=== PATIENT | female | born 1995 | race Caucasian/White ===

== ENCOUNTER 2020-05-01 17:47 | Emergency (ER) | payer MEDICAID, SELFPAY ==
[2020-05-01 18:28] VITALS: BP 125/76; PULSE 84; RESP 18; TEMP 37.9; O2SAT 100; BMI 25.7
[2020-05-01] MEDS: Acetaminophen 325 MG TABLET 650 MG PO (18:34)
[2020-05-01 19:01] LABS: Appearance Urine CLOUDY; Color Urine YELLOW; Glucose Urine UA NEG (NEG); Leukocyte Esterase Urine NEG (NEG); Nitrite Urine NEG (NEG); PH 7.5 (5.0-8.0); Specific Gravity - Urine 1.015 (1.005-1.025); Urine Blood NEG (NEG); Urine Ketones NEG (NEG); Urine Protein NEG (NEG-TRACE)
[2020-05-01 20:04] LABS: MANUAL DIFF FLAG NO
[2020-05-01 20:06] LABS: Basophils Absolute Auto 0.1 X10*3/uL (0.0-0.2); Basophils Percent Auto 0.5 % (0-2); Eosinophils Absolute Auto 0.1 X10*3/uL (0.0-0.4); Hematocrit 34.8 % (37-47); Hemoglobin 11.2 g/dl (12.0-16.0); Imm Gran Abs Auto 0.04 X10*3/uL (0.00-0.03); Imm Gran Pct Auto 0.4 % (0.0-0.4); Lymphocytes Absolute Auto 2.6 X10*3/uL (1.2-4.9); Lymphocytes Percent Auto 25.7 % (20-40); Mean Corpuscular HGB Conc 32.2 g/dl (31.0-35.0); Mean Corpuscular Hemoglobin 27.7 pg (27.0-33.0); Mean Corpuscular Volume 85.9 fL (80-98); Mean Platelet Volume 11.2 fL (9.4-12.3); Monocytes Absolute Auto 0.9 X10*3/uL (0.1-1.2); Monocytes Percent Auto 8.7 % (2-11); Neutrophils Absolute Auto 6.4 X10*3/uL (2.0-8.3); Neutrophils Percent Auto 63.7 % (45-73); Platelet Count 289 X10*3/uL (160-400); Red Blood Count 4.05 X10*6/uL (4.20-5.50); Red Cell Distribution Width 15.6 % (11.0-16.0)
[2020-05-01 20:28] LABS: Alanine Aminotransferase 17 U/L (0-31); Albumin Level 4.3 g/dL (3.5-5.0); Alkaline Phosphatase 66 U/L (39-117); Anion Gap 12 (12-20); Aspartate Amino Transferase 16 U/L (5-31); Bilirubin Total 0.4 mg/dL (0.0-1.0); Blood Urea Nitrogen 13 mg/dL (9-16); Carbon Dioxide 23 mmol/L (22-29); Chloride 107 mmol/L (96-108); Creatinine Clr Calc Pharmacy 103.1; Estimated Glomerular Filt Rate > 60; Glucose Random 102 mg/dL (60-115); Sodium 138 mmol/L (135-145); Total Protein 7.4 g/dL (6.5-8.0)
--- NOTE | 2020-05-01 21:38 | ED.ABDPAIN ---
HPI - Abdominal Pain General Chief Complaint: Abdominal Pain Stated Complaint: ABD PAIN Time Seen by Provider: 05/01/20 21:38 Source: patient Mode of arrival: ambulatory Limitations: no limitations History of Present Illness HPI narrative: 24-year-old female presents with left lower quadrant pain and states to have had a positive test. She reports that she is here to see if she is indeed , would like a repeat test. The left lower quadrant pain is a cramping pain, intermittent, and is not associated with fevers or chills. She does not describe any vaginal bleeding, chest pain or pressure, palpitations, shortness breath, abdominal distention, dysuria, hematuria, or edema. MD elicited complaint: abdominal pain Pertinent past history: none Onset (ago): day(s) Pain Consistency: intermittent Location: LLQ Severity: moderate Pain scale (0-10): 7 Quality: cramping Radiation: none Migration to: no migration Exacerbating factors: movement Relieving factors: nothing Associated symptoms: denies other symptoms Related Data Date of Last Menstrual Period: 04/12/20 Allergies Allergy/AdvReac Type Severity Reaction Status Date / Time No Known Allergies Allergy Verified 05/01/20 18:28 [No Known Allergies*] Review of Systems Review of Systems Constitutional: No Weight loss, No Fever, No Chills, No Night Sweats, No Fatigue, No Malaise ENT/Mouth: No Hearing loss, No Ear Pain, No Nasal Congestion, No Sinus Pain, No Hoarseness, No sore throat, No Rhinorrhea, No Swallowing Difficulty Eyes: No Eye Pain, No Swelling, No Redness, No Foreign Body, No Discharge, No Vision Changes Cardiovascular: No Chest Pain, No SOB, No Dyspnea on Exertion, No Orthopnea, No Edema, No Palpitations Respiratory: No Cough, No Sputum, No Wheezing, No Smoke Exposure, No Dyspnea Gastrointestinal: positive abdominal Pain, No nausea, no vomiting, no diarrhea, No Hematochezia, No Melena Genitourinary: no irregular bleeding, No Dysuria, No Urinary Frequency, No Hematuria, No Urinary Incontinence, No Urgency, No Flank Pain, No Urinary Flow Changes, No Hesitancy Musculoskeletal: No joint pain, No Myalgias, No Joint Swelling Skin: No Skin Lesions, No rash Neuro: No Weakness, No Numbness, No Paresthesias, No Loss of Consciousness, No Dizziness, No Headache Psych: No Anxiety/Panic, No Depression, No SI/HI/AH/VH, No Social Issues, Heme/Lymph: No Bruising, No Bleeding,No Lymphadenopathy Endocrine: No Polyuria, No Polydipsia, No Temperature Intolerance Physical Exam Vital Signs: Vital Signs: Vital Signs Temp Pulse Resp BP Pulse Ox 05/01/20 21:46 98.9 F 73 18 114/72 99 05/01/20 18:28 100.2 F 84 18 125/76 100 Body Mass Index 25.7 Appearance: Alert. Oriented X3. No acute distress. Eyes: Pupils equal, round and reactive to light. ENT: Pharynx normal. Neck: Normal inspection. Neck supple. CVS: Normal heart rate and rhythm. Pulses normal. Respiratory: No respiratory distress. Breath sounds normal. Abdomen: Soft and tender to palpation to the left lower quadrant. Skin: Skin warm and dry. Normal skin color. Normal skin turgor. Extremities: No lower extremity edema. Neuro: No motor deficit. No sensory deficit. Course Course Course Narrative: discussion with patient regarding plan of care, she states that she would like a repeat test. Lab values are within normal limits with the exception of some mild anemia H&H is 11.2/34.8. Abdomen is mildly tender to left lower quadrant, negative obturator, psoas, Navarrete's and McBurney's. Urinalysis is negative. Urine test is negative. Patient is dissatisfied with plan of care, she would like further testing to investigate why she has abdominal pain, detailed description regarding radiation exposure with CT scan, she would like to continue with CT scan To rule out acute abdomen. Patient left prior to CT scan results. Please refer to nursing notes for full details. MDM - Abdominal Pain Medical Records Attestation: I reviewed the patient's medical records. Lab Data Attestation: I reviewed the patient's lab results. Result diagrams: 05/01/20 20:00 05/01/20 19:59 Labs: Lab Results 05/01/20 05/01/20 05/01/20 Range/Units 18:49 19:59 19:59 WBC (4.8-10.8) X10*3/uL RBC (4.20-5.50) X10*6/uL Hgb (12.0-16.0) g/dl Hct (37-47) % MCV (80-98) fL MCH (27.0-33.0) pg MCHC (31.0-35.0) g/dl RDW (11.0-16.0) % Plt Count (160-400) X10*3/uL MPV (9.4-12.3) fL Immature Gran % (Auto) (0.0-0.4) % Neut % (Auto) (45-73) % Lymph % (Auto) (20-40) % [place] % (Auto) (2-11) % Eos % (Auto) (0-4) % Baso % (Auto) (0-2) % Lymph # (Auto) (1.2-4.9) X10*3/uL [place] # (Auto) (0.1-1.2) X10*3/uL Eos # (Auto) (0.0-0.4) X10*3/uL Baso # (Auto) (0.0-0.2) X10*3/uL Abs Immat Gran (auto) (0.00-0.03) X10*3/uL Absolute Neuts (auto) (2.0-8.3) X10*3/uL Absolute Nucleated RBC (0.0-0.012) X10*3/uL Nucleated RBC % (auto) (0.0-0.2) /100WBC Hold Blue Top SEE NOTE Sodium 138 (135-145) mmol/L Potassium 4.0 (3.3-5.1) mmol/l Chloride 107 (96-108) mmol/L Carbon Dioxide 23 (22-29) mmol/L Anion Gap 12 (12-20) BUN 13 (9-16) mg/dL Creatinine 0.78 (0.5-1.4) mg/dL Estim Creat Clear Calc 103.1 Estimated GFR > 60 Random Glucose 102 (60-115) mg/dL Calcium 9.0 (8.4-10.2) mg/dL Total Bilirubin 0.4 (0.0-1.0) mg/dL AST 16 (5-31) U/L ALT 17 (0-31) U/L Alkaline Phosphatase 66 (39-117) U/L Total Protein 7.4 (6.5-8.0) g/dL Albumin 4.3 (3.5-5.0) g/dL Urine Color YELLOW Urine Appearance CLOUDY Urine pH 7.5 (5.0-8.0) Ur Specific [place] 1.015 (1.005-1.025) Urine Protein NEG (NEG-TRACE) MG/DL Urine Glucose (UA) NEG (NEG) MG/DL Urine Ketones NEG (NEG) MG/DL Urine Blood NEG (NEG) Urine Nitrite NEG (NEG) Ur Leukocyte Esterase NEG (NEG) Urine Test NEGATIVE (NEGATIVE) 05/01/20 Range/Units 20:00 WBC 10.0 (4.8-10.8) X10*3/uL RBC 4.05 L (4.20-5.50) X10*6/uL Hgb 11.2 L (12.0-16.0) g/dl Hct 34.8 L (37-47) % MCV 85.9 (80-98) fL MCH 27.7 (27.0-33.0) pg MCHC 32.2 (31.0-35.0) g/dl RDW 15.6 (11.0-16.0) % Plt Count 289 (160-400) X10*3/uL MPV 11.2 (9.4-12.3) fL Immature Gran % (Auto) 0.4 (0.0-0.4) % Neut % (Auto) 63.7 (45-73) % Lymph % (Auto) 25.7 (20-40) % [place] % (Auto) 8.7 (2-11) % Eos % (Auto) 1.0 (0-4) % Baso % (Auto) 0.5 (0-2) % Lymph # (Auto) 2.6 (1.2-4.9) X10*3/uL [place] # (Auto) 0.9 (0.1-1.2) X10*3/uL Eos # (Auto) 0.1 (0.0-0.4) X10*3/uL Baso # (Auto) 0.1 (0.0-0.2) X10*3/uL Abs Immat Gran (auto) 0.04 H (0.00-0.03) X10*3/uL Absolute Neuts (auto) 6.4 (2.0-8.3) X10*3/uL Absolute Nucleated RBC 0.000 (0.0-0.012) X10*3/uL Nucleated RBC % (auto) 0.0 (0.0-0.2) /100WBC Hold Blue Top Sodium (135-145) mmol/L Potassium (3.3-5.1) mmol/l Chloride (96-108) mmol/L Carbon Dioxide (22-29) mmol/L Anion Gap (12-20) BUN (9-16) mg/dL Creatinine (0.5-1.4) mg/dL Estim Creat Clear Calc Estimated GFR Random Glucose (60-115) mg/dL Calcium (8.4-10.2) mg/dL Total Bilirubin (0.0-1.0) mg/dL AST (5-31) U/L ALT (0-31) U/L Alkaline Phosphatase (39-117) U/L Total Protein (6.5-8.0) g/dL Albumin (3.5-5.0) g/dL Urine Color Urine Appearance Urine pH (5.0-8.0) Ur Specific [place] (1.005-1.025) Urine Protein (NEG-TRACE) MG/DL Urine Glucose (UA) (NEG) MG/DL Urine Ketones (NEG) MG/DL Urine Blood (NEG) Urine Nitrite (NEG) Ur Leukocyte Esterase (NEG) Urine Test (NEGATIVE) Imaging Data CT scan - pelvis: Radiologist's impression: FINDINGS: LUNG BASES: The visualized lung bases are unremarkable. LIVER, GALLBLADDER, AND BILIARY TREE: The liver is normal in size, shape, and attenuation. No focal hepatic lesion or biliary ductal dilatation is present. The gallbladder is unremarkable with no evidence of radiopaque gallstones, gallbladder wall thickening, or obvious pericholecystic inflammatory changes. PANCREAS: Unremarkable. SPLEEN: A single splenic calcified granuloma is present. A tiny splenule is noted. The spleen is otherwise normal. ADRENAL GLANDS: Unremarkable. KIDNEYS AND URETERS: The kidneys are normal in size, shape, and attenuation. No hydronephrosis, hydroureter, or calculi seen. No perinephric stranding. BLADDER: Unremarkable. GASTROINTESTINAL TRACT: The small and large bowel are unremarkable. The appendix is unremarkable. ABDOMINAL WALL: No significant hernia is appreciated. LYMPH NODES: No retroperitoneal lymphadenopathy. Small bilateral inguinal nodes are present. VASCULAR: Both ovarian veins are dilated with the left measuring 1 cm and the right measuring 1.3 cm. I suspect, given their size, that these reflux. There are pelvic varices present but not well demonstrated because of lack of IV contrast. PELVIC VISCERA: An anteverted uterus is present. An abnormal adnexal mass is not seen. It is present in the cul-de-sac. OSSEOUS STRUCTURES: Unremarkable. IMPRESSION: 1. The only abnormality seen is bilaterally dilated ovarian veins which I suspect reflux. There are most likely pelvic varices. This can be a cause of chronic pelvic pain especially if exacerbated by the upright position and relieved with the supine position. If the patient has these symptoms, consultation with an interventional radiologist is recommended as this condition can easily be treated with outpatient embolization. 2. Incidental note made of a small amount of free pelvic fluid, a single calcified splenic granuloma and minimally prominent inguinal lymph nodes. Discharge Plan Discharge Clinical Impression: Abdominal pain Patient Disposition: Elopement Instructions: Abdominal Pain (ED) Additional Instructions: you were evaluated for suspected and abdominal pain. Your test is negative. please follow-up with your primary care physician for further workup. Thank you for choosing this emergency department for evaluation. Please follow-up with primary care physician as needed. Return to the emergency department for any new, concerning, or worsening symptoms. Interventions: ED Discharge Assessment Last Done: 05/01/20 22:19 Discharge Date/Time: 05/01/20 23:17 [facility] Past Medical History Medical History Anemia Tachycardia Date of Last Menstrual Period: 04/12/20 Social History Social History Alcohol intake: never Smoking Status: Never smoker Use of substances other than those prescribed or required for medical reasons: No Advance Directives: No Advance Directives Information Provided: Yes
[2020-05-01 21:46] VITALS: BP 114/72; PULSE 73; RESP 18; TEMP 37.2; O2SAT 99
[2020-05-01 21:51] LABS: UPreg QC Valid YES; Urine Pregnancy NEGATIVE (NEGATIVE)
--- NOTE | 2020-05-01 22:10 | PC.NURSE ---
patient is a&ox3, labs were drawn in wr, with urine, patients urine came back negative for - provider notified patient, patient will be discharged.
--- NOTE | 2020-05-01 22:23 | PC.NURSE ---
patient is refusing discharge at this time, pt states that provider didnt address her abd pain despite the patient telling the provider she had come in to confirm her and had been satisfied. provider was notified and additional testing will be performed.
--- NOTE | 2020-05-01 22:25 | CT_ITS ---
EXAMINATION: CT ABDOMEN AND PELVIS WITHOUT CONTRAST CLINICAL INFORMATION: Abdominal pain. COMPARISON: None TECHNIQUE: Multidetector volumetric imaging was performed from the superior aspect of the liver through the pubic symphysis. Sagittal and coronal reformatted images were obtained on the technologist's workstation. This CT examination was performed using dose optimization techniques as appropriate, variously including the following: *Automated exposure control. *Adjustment of mA and/or kV according to patient size (this includes techniques or standardized protocols for targeted exams where dose is matched to indication/reason for exam; i.e. extremities or head). *Use of iterative reconstruction technique. DLP: 422 mGy-cm FINDINGS: LUNG BASES: The visualized lung bases are unremarkable. LIVER, GALLBLADDER, AND BILIARY TREE: The liver is normal in size, shape, and attenuation. No focal hepatic lesion or biliary ductal dilatation is present. The gallbladder is unremarkable with no evidence of radiopaque gallstones, gallbladder wall thickening, or obvious pericholecystic inflammatory changes. PANCREAS: Unremarkable. SPLEEN: A single splenic calcified granuloma is present. A tiny splenule is noted. The spleen is otherwise normal. ADRENAL GLANDS: Unremarkable. KIDNEYS AND URETERS: The kidneys are normal in size, shape, and attenuation. No hydronephrosis, hydroureter, or calculi seen. No perinephric stranding. BLADDER: Unremarkable. GASTROINTESTINAL TRACT: The small and large bowel are unremarkable. The appendix is unremarkable. ABDOMINAL WALL: No significant hernia is appreciated. LYMPH NODES: No retroperitoneal lymphadenopathy. Small bilateral inguinal nodes are present. VASCULAR: Both ovarian veins are dilated with the left measuring 1 cm and the right measuring 1.3 cm. I suspect, given their size, that these reflux. There are pelvic varices present but not well demonstrated because of lack of IV contrast. PELVIC VISCERA: An anteverted uterus is present. An abnormal adnexal mass is not seen. It is present in the cul-de-sac. OSSEOUS STRUCTURES: Unremarkable. IMPRESSION: 1. The only abnormality seen is bilaterally dilated ovarian veins which I suspect reflux. There are most likely pelvic varices. This can be a cause of chronic pelvic pain especially if exacerbated by the upright position and relieved with the supine position. If the patient has these symptoms, consultation with an interventional radiologist is recommended as this condition can easily be treated with outpatient embolization. 2. Incidental note made of a small amount of free pelvic fluid, a single calcified splenic granuloma and minimally prominent inguinal lymph nodes.
--- NOTE | 2020-05-01 22:30 | PC.NURSE ---
PT CURRENTLY IN CT SCAN, UNABLE TO GIVE MEDICATION AT THIS TIME
--- NOTE | 2020-05-01 23:06 | PC.NURSE ---
PATIENT COMING OUT OF HER ROOM, STATING TO STAFF MEMBERS AT THE DESK. THIS IS TAKING TO LONG AND I AM NOT WAITING ANY LONGER . PATIENT QUITE RUDE TO STAFF. PATIENT ENCOURAGED TO STAY FOR RESULTS FOR CT SCAN BECAUSE SHE WAS CONCERNED ABOUT HER ABD PAIN. PATIENT REFUSING AND LEAVING FROM EMERGENCY DEPARTMENT. PROVIDER AND PRIMARY NURSE MADE AWARE. NO DISTRESS OR FACIAL GRIMACE NOTED WHILE PATIENT WAS STEADILY AMBULATING THE HALLWAYS.
== END 2020-05-01 23:17 | disposition left against medical advice (07) ==
PROVIDERS: Nurse Practitioner Family; Emergency Provider Emergency Medicine; PCP Family Medicine
DX: R10.32 Left lower quadrant pain (principal)
CPT/HCPCS: 36415; 74176; 80053; 81003; 81025; 85025; 99284

== ENCOUNTER 2020-05-18 11:52 | Emergency (ER) | payer MEDICAID, SELFPAY ==
[2020-05-18 12:26] VITALS: PULSE 85; RESP 16; TEMP 36.9; O2SAT 100; BMI 24.7
--- NOTE | 2020-05-18 12:31 | ED.GENADULT ---
HPI - General Adult General Chief complaint: Nausea/Vomiting/Diarrhea Stated complaint: Vomiting, Rapid Heart Beat Time Seen by Provider: 05/18/20 12:21 Source: patient Mode of arrival: ambulatory Limitations: no limitations History of Present Illness HPI narrative: patient comes to the emergency room complaining of vomiting for 2-3 days. Patient states she got something [id number] that helped initially for the 1st day but the last 2 days she has been vomiting. Patient denies abdominal pain, no diarrhea, no fever. Of note, patient was seen here on 05/01/2020 for left lower quadrant pain, a CT scan did not show any acute pathology, patient left that the day before the CT scan results were available because she had to go home and take care of her Child. Patient states that our test here was negative, Than in [facility] she had a test which was positive. MD complaint: vomiting Related Data Previous Rx's Medication Instructions Recorded prochlorperazine maleate 5 mg PO BID PRN #10 tab 05/18/20 [Compazine] Allergies Allergy/AdvReac Type Severity Reaction Status Date / Time No Known Allergies Allergy Verified 05/01/20 18:28 [No Known Allergies*] Review of Systems Review of Systems: Constitutional : No Weight loss, No Fever, No Chills, No Night Sweats, No Fatigue, No Malaise ENT/Mouth : No Hearing loss, No Ear Pain, No Nasal Congestion, No Sinus Pain, No Hoarseness, No sore throat, No Rhinorrhea, No Swallowing Difficulty Eyes: No Eye Pain, No Swelling, No Redness, No Foreign Body, No Discharge, No Vision Changes Cardiovascular : No Chest Pain, No SOB, No Dyspnea on Exertion, No Orthopnea, No Edema, No Palpitations Respiratory : No Cough, No Sputum, No Wheezing, No Smoke Exposure, No Dyspnea Gastrointestinal : Patient complaining of nausea and vomiting, No Diarrhea, No Constipation, No abdominal Pain, No Hematochezia, No Melena Genitourinary : no irregular bleeding, No Dysuria, No Urinary Frequency, No Hematuria, No Urinary Incontinence, No Urgency, No Flank Pain, No Urinary Flow Changes, No Hesitancy Musculoskeletal : No joint pain, No Myalgias, No Joint Swelling Skin : No Skin Lesions, No rash Neuro : No Weakness, No Numbness, No Paresthesias, No Loss of Consciousness, No Dizziness, No Headache Psych : No Anxiety/Panic, No Depression, No SI/HI/AH/VH, No Social Issues, Heme/Lymph: No Bruising, No Bleeding,No Lymphadenopathy Endocrine : No Polyuria, No Polydipsia, No Temperature Intolerance Yes all other systems are reviewed and are negative FORMERLY [facility], [facility] Past Medical History Medical History Anemia Tachycardia Social History Social History Alcohol intake: never Smoking Status: Never smoker Smoked in Last 30 Days: No Use of substances other than those prescribed or required for medical reasons: No Advance Directives: No Advance Directives Information Provided: No Physical Exam Vital Signs: Vital Signs: Vital Signs Temp Pulse Resp Pulse Ox 05/18/20 12:26 98.5 F 85 16 100 Body Mass Index 24.7 Appearance: Alert. Oriented X3. No acute distress. Eyes: Pupils equal, round and reactive to light. ENT: Pharynx normal. Neck: Normal inspection. Neck supple. No lymph nodes noted. No crepitus CVS: Normal heart rate and rhythm. Pulses normal. Normal S1 and S2 Respiratory: No respiratory distress. Breath sounds normal. No Wheezing. No rales Abdomen: Soft and nontender. No rigidity. No distention. good BS x4 Skin: Skin warm and dry. Normal skin color. Normal skin turgor. Extremities: No lower extremity edema. No lower extremity edema. No Lacerations. No Rash Neuro: Oriented X 3. No motor deficit. No sensory deficit. Moving all extermities. No slurred speech. Course Course Course Narrative: I discussed the labs with the patient, her hCG is positive, echo well into approximately 5-6 weeks of gestational age. A bedside ultrasound showed an intrauterine urine , heart rate present. Patient follow-up with OBGYN I discussed with the patient signs and symptoms of miscarriage and ectopic , And when to return to the emergency room. Medical Decision Making Lab Data Result diagrams: 05/18/20 12:39 05/18/20 12:39 Labs: Lab Results 05/18/20 05/18/20 05/18/20 Range/Units 12:39 12:39 12:39 WBC 11.7 H (4.8-10.8) X10*3/uL RBC 4.08 L (4.20-5.50) X10*6/uL Hgb 11.0 L (12.0-16.0) g/dl Hct 34.5 L (37-47) % MCV 84.6 (80-98) fL MCH 27.0 (27.0-33.0) pg MCHC 31.9 (31.0-35.0) g/dl RDW 15.3 (11.0-16.0) % Plt Count 271 (160-400) X10*3/uL MPV 10.8 (9.4-12.3) fL Immature Gran % (Auto) 0.5 H (0.0-0.4) % Neut % (Auto) 78.1 H (45-73) % Lymph % (Auto) 14.0 L (20-40) % [place] % (Auto) 6.8 (2-11) % Eos % (Auto) 0.3 (0-4) % Baso % (Auto) 0.3 (0-2) % Lymph # (Auto) 1.6 (1.2-4.9) X10*3/uL [place] # (Auto) 0.8 (0.1-1.2) X10*3/uL Eos # (Auto) 0.0 (0.0-0.4) X10*3/uL Baso # (Auto) 0.0 (0.0-0.2) X10*3/uL Abs Immat Gran (auto) 0.06 H (0.00-0.03) X10*3/uL Absolute Neuts (auto) 9.1 H (2.0-8.3) X10*3/uL Absolute Nucleated RBC 0.000 (0.0-0.012) X10*3/uL Nucleated RBC % (auto) 0.0 (0.0-0.2) /100WBC Sodium 136 (135-145) mmol/L Potassium 3.7 (3.3-5.1) mmol/l Chloride 105 (96-108) mmol/L Carbon Dioxide 21 L (22-29) mmol/L Anion Gap 14 (12-20) BUN 10 (9-16) mg/dL Creatinine 0.69 (0.5-1.4) mg/dL Estim Creat Clear Calc 114.8 Estimated GFR > 60 Random Glucose 99 (60-115) mg/dL Calcium 8.8 (8.4-10.2) mg/dL Total Bilirubin 0.6 (0.0-1.0) mg/dL Direct Bilirubin < 0.2 (0.0-0.5) mg/dL AST 21 (5-31) U/L ALT 15 (0-31) U/L Alkaline Phosphatase 58 (39-117) U/L Total Protein 7.3 (6.5-8.0) g/dL Albumin 4.3 (3.5-5.0) g/dL Lipase 20 (8-78) U/L Beta HCG, Quant 97113 mIU/mL ECG Data Attestation: I personally reviewed and interpreted this ECG as follows: ( sinus tachycardia, heart rate 103, no ST segment elevations or depressions, no T-wave inversions.) Discharge Plan Discharge Clinical Impression: Vomiting Qualifiers: Vomiting type: unspecified Vomiting Intractability: unspecified Nausea presence: unspecified Qualified Code(s): R11.10 - Vomiting, unspecified Qualifiers: Weeks of gestation: less than 8 weeks Qualified Code(s): Z3A.01 - Less than 8 weeks gestation of Patient Disposition: Home, Self-Care Instructions: First Trimester (ED) Additional Instructions: please call OBGYN to schedule an appointment if you have any significant abdominal pain, vaginal bleeding, please return to the emergency room. Please follow-up with your primary care physician tomorrow. If you have any worsening or new symptoms, please return to the emergency room or call 911 Prescriptions: New prochlorperazine maleate [Compazine] 5 mg tablet 5 mg PO BID PRN (Reason: nausea and vomiting) Qty: 10 RF: 0
[2020-05-18 12:34] VITALS: PULSE 94
[2020-05-18] MEDS: 0.9 % Sodium Chloride 1,000 ML 999 ML IVCONT (12:45)
[2020-05-18] MEDS: ondansetron HCL 4 MG/2 ML VIAL IVPUSH (12:45)
[2020-05-18 12:50] LABS: MANUAL DIFF FLAG NO
[2020-05-18 12:55] LABS: Basophils Percent Auto 0.3 % (0-2); Eosinophils Percent Auto 0.3 % (0-4); Hematocrit 34.5 % (37-47); Imm Gran Abs Auto 0.06 X10*3/uL (0.00-0.03); Imm Gran Pct Auto 0.5 % (0.0-0.4); Lymphocytes Absolute Auto 1.6 X10*3/uL (1.2-4.9); Mean Corpuscular HGB Conc 31.9 g/dl (31.0-35.0); Mean Corpuscular Volume 84.6 fL (80-98); Mean Platelet Volume 10.8 fL (9.4-12.3); Monocytes Absolute Auto 0.8 X10*3/uL (0.1-1.2); Monocytes Percent Auto 6.8 % (2-11); Neutrophils Absolute Auto 9.1 X10*3/uL (2.0-8.3); Neutrophils Percent Auto 78.1 % (45-73); Platelet Count 271 X10*3/uL (160-400); Red Blood Count 4.08 X10*6/uL (4.20-5.50); Red Cell Distribution Width 15.3 % (11.0-16.0); White Blood Count 11.7 X10*3/uL (4.8-10.8)
[2020-05-18 13:20] LABS: Alanine Aminotransferase 15 U/L (0-31); Albumin Level 4.3 g/dL (3.5-5.0); Alkaline Phosphatase 58 U/L (39-117); Anion Gap 14 (12-20); Aspartate Amino Transferase 21 U/L (5-31); Bilirubin Direct < 0.2 mg/dL (0.0-0.5); Bilirubin Total 0.6 mg/dL (0.0-1.0); Blood Urea Nitrogen 10 mg/dL (9-16); Calcium 8.8 mg/dL (8.4-10.2); Carbon Dioxide 21 mmol/L (22-29); Chloride 105 mmol/L (96-108); Creatinine Clr Calc Pharmacy 114.8; Estimated Glomerular Filt Rate > 60; Glucose Random 99 mg/dL (60-115); Lipase 20 U/L (8-78); Potassium 3.7 mmol/l (3.3-5.1); Sodium 136 mmol/L (135-145); Total Protein 7.3 g/dL (6.5-8.0)
[2020-05-18 13:48] LABS: HCG Quantitative 24103 mIU/mL
--- NOTE | 2020-05-18 13:56 | PC.NURSE ---
pt reports improvement in nausea since medicated. no vomiting since coming to ED.
--- NOTE | 2020-05-19 | ECG_ITS ---
Test Reason : TACHYCARDIA/VOMITING Blood Pressure : / mmHG Vent. Rate : 103 BPM Atrial Rate : 103 BPM P-R Int : 120 ms QRS Dur : 070 ms QT Int : 334 ms P-R-T Axes : 058 069 036 degrees QTc Int : 437 ms Sinus tachycardia Nonspecific T wave abnormality Abnormal ECG When compared with ECG of 01-SEP-2016 12:11, No significant change was found Referred By: Matilda Hurley Electronically Signed By:ECTOR MCNEIL MD
== END 2020-05-18 15:55 | disposition home or self-care (01) ==
PROVIDERS: Emergency Provider Emergency Medicine; PCP Family Medicine
DX: O21.0 Mild hyperemesis gravidarum (principal); Z3A.08 8 weeks gestation of pregnancy
CPT/HCPCS: 36415; 80048; 80076; 83690; 84702; 85025; 93005; 96361; 96374; 99284; J2405

== ENCOUNTER 2020-05-24 13:18 | Emergency (ER) | payer MEDICAID, SELFPAY ==
[2020-05-24 13:21] VITALS: BP 119/73; PULSE 83; RESP 16; TEMP 36.4; O2SAT 98; BMI 25.7
--- NOTE | 2020-05-24 15:49 | ED_ITS ---
HPI - Nausea/Vomiting/Diarrhea General Chief complaint: Nausea/Vomiting/Diarrhea Stated complaint: VOMITING BLOOD Time Seen by Provider: 05/24/20 15:42 Source: patient Mode of arrival: ambulatory Limitations: no limitations History of Present Illness HPI Narrative: 24-year-old female here with generalized abdominal pain and vomiting for the last few days. No diarrhea. She tells me she is currently . She has not had a formal ultrasound. She thinks she is about 7 weeks. She is a . She was seen here on 05/18 for similar symptoms. [place] [address]. she received IV fluids and antiemetic and was discharged home with Compazine. Per provider note a bedside US which conf irmed intrauterine . The patient tells me she has tried this several times but continues to have nausea and vomiting. No lower abdominal cramping. No vaginal bleeding. No vaginal discharge. MD elicited complaint: nausea, vomiting and abdominal pain Onset (ago): day(s) Description of vomiting: food contents Associated nausea: Yes Associated abdominal pain: Yes Location of pain: diffuse Pain consistency: constant Severity: mild Exacerbating factors: none Relieving factors: none Associated symptoms: denies other symptoms Related Data Previous Rx's Medication Instructions Recorded prochlorperazine maleate 5 mg PO BID PRN #10 tab 05/18/20 [Compazine] promethazine 12.[address] TID PRN #8 ea 05/24/20 pyridoxine (vitamin B6) 25 mg PO TID PRN #10 tab 05/24/20 Allergies Allergy/AdvReac Type Severity Reaction Status Date / Time No Known Allergies Allergy Verified 05/01/20 18:28 [No Known Allergies*] Review of Systems Review of Systems: Yes all other systems are reviewed and are negative Constitutional: Constitutional: Reports no additional constitutional complaints, Denies body ache(s), Denies chills, Denies fever(s), Denies hea dache(s) and Denies weakness Eyes: Eyes: Reports no additional eye complaints and Denies change in vision ENT: Reports system reviewed and no additional complaints, except as documented, Denies dizziness, Denies headache(s), Denies nasal congestion, Denies nasal discharge and Denies neck pain Cardiovascular: Cardiovascular: Reports no additional cardiovascular complaints, Denies chest pain, Denies leg edema and Denies dyspnea Respiratory: Respiratory: Reports no additional respiratory complaints, Denies cough and Denies dyspnea Gastrointestinal: Gastrointestinal: Reports abdominal pain, Denies diarrhea, Reports nausea and Reports vomiting Genitourinary: Genitourinary: Reports no additional female genitourinary complaints, Denies urinary incontinence, Denies urinary hesitancy, Denies urinary urgency and Denies vaginal discharge Comments: no vaginal bleeding Musculoskeletal: Musculoskeletal: Reports no additional musculoskeletal complaints, Denies back pain, Denies arthralgias, Denies joint swelling, Denies neck pain, Denies numbness and Denies tingling Integumentary/Breasts: Skin/Breast: Reports system reviewed and no additional complaints, except as docu and Denies rash Neurologic: Reports system reviewed and no additional complaints, except as documented, Denies Abnormal speech present, Denies dizziness, Denies headache(s), Denies numbness, Denies tingling and Denies weakness PMFSH Past Medical History Attestation statement: The following information was validated with the patient. Source: obtained from family and nursing notes reviewed Medical History Anemia Tachycardia Social History Social History Alcohol intake: unknown Smoking Status: Never smoker Smoked in Last 30 Days: No Use of substances other than those prescribed or required for medical reasons: No Advance Directives: No Advance Directives Information Provided: No Physical Exam Vital Signs: Vital Signs: Vital Signs Temp Pulse Resp BP Pulse Ox 05/24/20 19:07 72 18 109/64 100 05/24/20 17:46 70 20 109/67 05/24/20 13:21 97.6 F 83 16 119/73 98 Body Mass Index 25.7 Const: General: cooperative, healthy appearing, comfortable and no acute distress Orientation/consciousness: patient oriented x3 Limitations: no limitations HENMT: Head: Yes normal to inspection Ears: hearing grossly normal bilaterally General nose exam: Normal external nose present Face and sinus: Yes normal facial exam Mouth: Normal oral and palatal mucosa present Throat: Yes posterior oropharynx normal Eyes: General: appearance normal, both eyes and all related structures Pupils: Equal, round and reactive pupils present Neck: Neck: Yes normal visual inspection Chest: Chest palpation & inspection: normal inspection of the chest Resp: Effort & Inspection: normal respiratory effort Auscultation: clear to auscultation bilaterally Cardio: Rate: regular rate Rhythm: regular rhythm Peripheral pulses: Peripheral pulses 2+ throughout GI: Other: mild diffuse tenderness. No focal tenderness. Inspection: Yes normal to inspection Palpation (GI): Soft to palpation and nontender Auscultation: normal bowel sounds Back/Spine/Pelvis: Thoracic/Lumbar Spine: thoracic and lumbar spine normal to inspection Skin: General skin exam: no rashes or lesions noted Neuro: General: patient oriented x3, no focal motor deficits and normal sensation to monofilament Cranial nerves: Yes Equal, round and reactive pup ils present Cognition (Neuro): normal cognition Speech: No Abnormal speech present Gait exam (Neuro): Normal gait present Motor exam (neuro): 5/5 motor strength present throughout Extrem: General: Yes normal to inspection Course Course Course Narrative: 24-year-old female currently here with nausea, vomiting and generalized abdominal discomfort the last few days unrelieved with Compazine at home. On arrival the patient has no focal abdominal tenderness. She has some mild diffuse tenderness. Otherwise she appears well with stable vital signs. Will check labs, UA for ketones, beta quant. Will give IV fluids and antiemetic and reassessed 2100- labs unremarkable. UA does show some ketones. Patient received 3 L of normal saline and 1 dose of Phenergan and is tolerating crackers and wil robbi with no episodes of vomiting. Plan for discharge home with follow-up with OB. Reviewed worrisome signs and symptoms and when to return to the emergency department. Comfortable discharge home. MDM - Nausea/Vomiting/Diarrhea Medical Records Attestation: I reviewed the patient's medical records. Lab Data Attestation: I reviewed the patient's lab results. Result diagrams: 05/24/20 15:59 05/24/20 15:59 Labs: Lab Results 05/24/20 05/24/20 05/24/20 Range/Units 15:59 15:59 20:04 WBC 9.4 (4.8-10.8) X10*3/uL RBC 4.25 (4.20-5.50) X10*6/uL Hgb 11.5 L (12.0-16.0) g/dl Hct 35.9 L (37-47) % MCV 84.5 (80-98) fL MCH 27.1 (27.0-33.0) pg MCHC 32.0 (31.0-35.0) g/dl RDW 15.3 (11.0-16.0) % Plt Count 252 (160-400) X10*3/uL MPV 11.3 (9.4-12.3) fL Immature Gran % (Auto) 0.3 (0.0-0.4) % Neut % (Auto) 69.1 (45-73) % Lymph % (Auto) 21.6 (20-40) % [place] % (Auto) 8.3 (2-11) % Eos % (Auto) 0.3 (0-4) % Baso % (Auto) 0.4 (0-2) % Lymph # (Auto) 2.0 (1.2-4.9) X10*3/uL [place] # (Auto) 0.8 (0.1-1.2) X10*3/uL Eos # (Auto) 0.0 (0.0-0.4) X10*3/uL Baso # (Auto) 0.0 (0.0-0.2) X10*3/uL Abs Immat Gran (auto) 0.03 (0.00-0.03) X10*3/uL Absolute Neuts (auto) 6.5 (2.0-8.3) X10*3/uL Absolute Nucleated RBC 0.000 (0.0-0.012) X10*3/uL Nucleated RBC % (auto) 0.0 (0.0-0.2) /100WBC Sodium 134 L (135-145) mmol/L Potassium 3.9 (3.3-5.1) mmol/l Chloride 102 (96-108) mmol/L Carbon Dioxide 24 (22-29) mmol/L Anion Gap 12 (12-20) BUN 8 L (9-16) mg/dL Creatinine 0.67 (0.5-1.4) mg/dL Estim Creat Clear Calc 120.0 Estimated GFR > 60 Random Glucose 66 (60-115) mg/dL Calcium 8.7 (8.4-10.2) mg/dL Magnesium 1.9 (1.6-2.6) mg/dL Total Bilirubin 0.6 (0.0-1.0) mg/dL Direct Bilirubin 0.2 (0.0-0.5) mg/dL AST 15 (5-31) U/L ALT 10 (0-31) U/L Alkaline Phosphatase 57 (39-117) U/L Total Protein 7.3 (6.5-8.0) g/dL Albumin 4.3 (3.5-5.0) g/dL Beta HCG, Quant 83594 mIU/mL Urine Color YELLOW Urine Appearance CLEAR Urine pH 6.0 (5.0-8.0) Ur Specific [place] >= 1.030 H (1.005-1.025) Urine Protein NEG (NEG-TRACE) MG/DL Urine Glucose (UA) NEG (NEG) MG/DL Urine Ketones >=80 (NEG) MG/DL Urine Blood NEG (NEG) Urine Nitrite NEG (NEG) Ur Leukocyte Esterase NEG (NEG) Discharge Plan Discharge Clinical Impression: Hyperemesis gravidarum Patient Disposition: Home, Self-Care Instructions: Hyperemesis Gravidarum (ED) Additional Instructions: Keep crackers by the bedside before getting out of bed in the morning ate several crackers. You need to follow-up with an OB doctor as you are Prescriptions: New promethazine 12.5 mg suppository 12.[address] TID PRN (Reason: nausea and vomiting) Qty: 8 RF: 0 pyridoxine (vitamin B6) 25 mg tablet 25 mg PO TID PRN (Reason: nausea and vomiting) Qty: 10 RF: 0 No Action prochlorperazine maleate [Compazine] 5 mg tablet 5 mg PO BID PRN (Reason: nausea and vomiting) Qty: 10 RF: 0 Referrals: Bhargav Walton MD [Physician] - 2 days Stand Alone Forms: Work/School Release
[2020-05-24] MEDS: 0.9 % Sodium Chloride 1,000 ML 999 ML IV ×3 (16:01→21:52)
[2020-05-24 16:09] LABS: MANUAL DIFF FLAG NO
[2020-05-24 16:10] LABS: Basophils Percent Auto 0.4 % (0-2); Eosinophils Percent Auto 0.3 % (0-4); Hematocrit 35.9 % (37-47); Hemoglobin 11.5 g/dl (12.0-16.0); Imm Gran Abs Auto 0.03 X10*3/uL (0.00-0.03); Imm Gran Pct Auto 0.3 % (0.0-0.4); Lymphocytes Percent Auto 21.6 % (20-40); Mean Corpuscular Hemoglobin 27.1 pg (27.0-33.0); Mean Corpuscular Volume 84.5 fL (80-98); Mean Platelet Volume 11.3 fL (9.4-12.3); Monocytes Absolute Auto 0.8 X10*3/uL (0.1-1.2); Monocytes Percent Auto 8.3 % (2-11); Neutrophils Absolute Auto 6.5 X10*3/uL (2.0-8.3); Neutrophils Percent Auto 69.1 % (45-73); Platelet Count 252 X10*3/uL (160-400); Red Blood Count 4.25 X10*6/uL (4.20-5.50); Red Cell Distribution Width 15.3 % (11.0-16.0); White Blood Count 9.4 X10*3/uL (4.8-10.8)
[2020-05-24 16:37] LABS: Alanine Aminotransferase 10 U/L (0-31); Albumin Level 4.3 g/dL (3.5-5.0); Alkaline Phosphatase 57 U/L (39-117); Anion Gap 12 (12-20); Aspartate Amino Transferase 15 U/L (5-31); Bilirubin Direct 0.2 mg/dL (0.0-0.5); Bilirubin Total 0.6 mg/dL (0.0-1.0); Blood Urea Nitrogen 8 mg/dL (9-16); Calcium 8.7 mg/dL (8.4-10.2); Carbon Dioxide 24 mmol/L (22-29); Chloride 102 mmol/L (96-108); Estimated Glomerular Filt Rate > 60; Glucose Random 66 mg/dL (60-115); Magnesium 1.9 mg/dL (1.6-2.6); Potassium 3.9 mmol/l (3.3-5.1); Sodium 134 mmol/L (135-145); Total Protein 7.3 g/dL (6.5-8.0)
[2020-05-24 17:46] VITALS: BP 109/67; PULSE 70; RESP 20
[2020-05-24 19:07] VITALS: BP 109/64; PULSE 72; RESP 18; O2SAT 100
--- NOTE | 2020-05-24 19:08 | PC.NURSE ---
report received from Champ gonsalez. pt ivf completed and denies n/v/d. pt is asking for something to eat. skin pink warm and dry. pt denies contractions, no cramping at this time.
[2020-05-24 20:00] VITALS: BP 117/69; PULSE 83; RESP 18; O2SAT 100
[2020-05-24 20:13] LABS: Glucose Urine UA NEG (NEG); Leukocyte Esterase Urine NEG (NEG); Nitrite Urine NEG (NEG); Specific Gravity - Urine >= 1.030 (1.005-1.025); Urine Blood NEG (NEG); Urine Ketones >=80 MG/DL (NEG); Urine Protein NEG (NEG-TRACE)
[2020-05-24 20:15] LABS: Appearance Urine CLEAR; Color Urine YELLOW
--- NOTE | 2020-05-24 22:46 | PC.NURSE ---
pt given saltines and gingerale. pt ate all the saltines and drank the gingerale with no vomiting. pt still feels nausea. ivf infusing.
--- NOTE | 2020-05-24 23:19 | PC.NURSE ---
pt resting no vomiting after after saltines and gingerale taken. pt is resting comfortably.
[2020-05-24 23:25] VITALS: BP 117/69; PULSE 66; RESP 18; O2SAT 99
== END 2020-05-24 23:31 | disposition home or self-care (01) ==
PROVIDERS: Nurse Practitioner Family; Emergency Provider Emergency Medicine; PCP Family Medicine
DX: O21.0 Mild hyperemesis gravidarum (principal); Z3A.01 Less than 8 weeks gestation of pregnancy
CPT/HCPCS: 36415; 80048; 80076; 81003; 83735; 84702; 85025; 96361; 96374; 99284

== ENCOUNTER → 2020-06-21 14:03 | Outpatient (BNVA) | payer MEDICAID, SELFPAY | PROVIDERS: Visit Provider Advanced Practice Midwife | DX: Z76.89 Persons encountering health services in other specified circumstances (principal) ==

== ENCOUNTER 2020-06-21 18:24 | Emergency (ER) | payer MEDICAID, SELFPAY ==
[2020-06-21 18:49] VITALS: BP 137/73; PULSE 83; RESP 19; TEMP 37.1; O2SAT 99; BMI 23.4
--- NOTE | 2020-06-21 19:38 | US_ITS ---
EXAMINATION: US OB FIRST TRIMESTER CLINICAL INFORMATION: Pain. COMPARISON: 08/22/2016 TECHNIQUE: Transabdominal ultrasound. FINDINGS: LMP: 04/02/2020. This corresponds with a gestational age of 11 weeks 3 days,. VERONIQUE by LMP 01/07/2021. Single intrauterine , with a pole present. [place]-rump length of 3.96 cm. This corresponds with a gestational age by ultrasound of 10 weeks 6 days, VERONIQUE 01/11/2021. Gestational sac present. motion is seen. heart rate 169 bpm. Right ovary measures 3.7 x 1.9 x 2.1 cm. Left ovary measures 2.1 x 1.6 x 2.4 cm. Bilateral ovaries appear unremarkable. US/US OB <= 14 weeks fetus IMPRESSION: Single live intrauterine . heart rate 169 bpm. By ultrasound, gestational age is 10 weeks 6 days, VERONIQUE 01/11/2021.
[2020-06-21] MEDS: 0.9 % Sodium Chloride 1,000 ML 999 ML IV (19:57)
[2020-06-21 20:03] LABS: Basophils Percent Auto 0.3 % (0-2); Eosinophils Percent Auto 0.4 % (0-4); Hematocrit 36.3 % (37-47); Hemoglobin 11.7 g/dl (12.0-16.0); Imm Gran Abs Auto 0.04 X10*3/uL (0.00-0.03); Imm Gran Pct Auto 0.4 % (0.0-0.4); Lymphocytes Absolute Auto 1.9 X10*3/uL (1.2-4.9); MANUAL DIFF FLAG NO; Mean Corpuscular HGB Conc 32.2 g/dl (31.0-35.0); Mean Corpuscular Hemoglobin 27.3 pg (27.0-33.0); Mean Corpuscular Volume 84.8 fL (80-98); Mean Platelet Volume 11.3 fL (9.4-12.3); Monocytes Absolute Auto 0.7 X10*3/uL (0.1-1.2); Monocytes Percent Auto 6.2 % (2-11); Neutrophils Percent Auto 74.7 % (45-73); Platelet Count 248 X10*3/uL (160-400); Red Blood Count 4.28 X10*6/uL (4.20-5.50); White Blood Count 10.7 X10*3/uL (4.8-10.8)
[2020-06-21 20:07] LABS: Glucose Urine UA NEG (NEG); Leukocyte Esterase Urine TRACE (NEG); Nitrite Urine NEG (NEG); Specific Gravity - Urine 1.025 (1.005-1.025); Urine Blood NEG (NEG); Urine Ketones >=80 MG/DL (NEG); Urine Protein NEG (NEG-TRACE)
[2020-06-21 20:16] LABS: Appearance Urine CLOUDY; Color Urine YELLOW
[2020-06-21 20:26] LABS: Alanine Aminotransferase 18 U/L (0-31); Albumin Level 4.2 g/dL (3.5-5.0); Alkaline Phosphatase 56 U/L (39-117); Anion Gap 14 (12-20); Aspartate Amino Transferase 16 U/L (5-31); Bilirubin Total 0.4 mg/dL (0.0-1.0); Blood Urea Nitrogen 6 mg/dL (9-16); Calcium 9.3 mg/dL (8.4-10.2); Carbon Dioxide 22 mmol/L (22-29); Chloride 105 mmol/L (96-108); Creatinine Clr Calc Pharmacy 125.8; Estimated Glomerular Filt Rate > 60; Glucose Random 70 mg/dL (60-115); Sodium 137 mmol/L (135-145); Total Protein 7.5 g/dL (6.5-8.0)
--- NOTE | 2020-06-21 20:45 | ED_ITS ---
HPI - General Chief complaint: Abdominal Pain Stated complaint: vomiting Time Seen by Provider: 06/21/20 19:38 Source: patient Mode of arrival: ambulatory Limitations: no limitations History of Present Illness HPI Narrative: pleasant 24-year-old female who is A 0 currently 11 weeks gestation by date of last menses did her initial OBGYN intake today who presents today with complaint of nausea and vomiting on and off throughout the day called her OB services that she had her intake today with and advised to come to emergency room. She denies any vaginal bleeding or discharge. Does report some diffuse lower abdominal pain intermittently. States the nausea and vomiting symptoms have been going on for several weeks. Denies any diarrhea, sick travel, chest pain or shortness of breath. No URI symptoms. MD Complaint: abdominal pain Onset (ago): day(s) Pain Consistency: intermittent Location: abdomen Severity: mild Quality: Aching Radiation: abdomen Relieving factors: none Exacerbating factors: none Associated symptoms: nausea and vomiting Vaginal discharge: none Vaginal bleeding: none Related Data Home Medications Medication Instructions Recorded Confirmed vitamins-iron 1 tab PO DAILY tab 06/21/20 06/21/20 bisglycinate 27 mg iron-folic acid 1 mg tablet Allergies Allergy/AdvReac Type Severity Reaction Status Date / Time No Known Allergies Allergy Verified 06/21/20 14:12 [No Known Allergies*] Review of Systems Review of Systems: Constitutional: No Weight loss, No Fever, No Chills, No Night Sweats, No Fatigue, No Malaise ENT/Mouth: No Hearing loss, No Ear Pain, No Nasal Congestion, No Sinus Pain, No Hoarseness, No sore throat, No Rhinorrhea, No Swallowing Difficulty Eyes: No Eye Pain, No Swelling, No Redness, No Foreign Body, No Discharge, No Vision Changes Cardiovascular: No Chest Pain, No SOB, No Dyspnea on Exertion, No Orthopnea, No Edema, No Palpitations Respiratory: No Cough, No Sputum, No Wheezing, No Smoke Exposure, No Dyspnea Gastrointestinal: No Nausea, No Vomiting, No Diarrhea, No Constipation Genitourinary: no irregular bleeding, No Dysuria, No Urinary Frequency, No Hematuria, No Urinary Incontinence, No Urgency, No Flank Pain, No Urinary Flow Changes, No Hesitancy Musculoskeletal: No joint pain, No Myalgias, No Joint Swelling Skin: No Skin Lesions, No rash Neuro: No Weakness, No Numbness, No Paresthesias, No Loss of Consciousness, No Dizziness, No Headache Psych: No Anxiety/Panic, No Depression No Social Issues Heme/Lymph: No Bruising, No Bleeding,No Lymphadenopathy Endocrine: No Polyuria, No Polydipsia, No Temperature Intolerance Yes all other systems are reviewed and are negative [facility] Past Medical History Medical History Anemia Tachycardia Family History Family History (Updated 06/21/20 @ 15:22 by Peggy Aaron LPN) Mother No problems noted. Father No problems noted. Maternal Grandmother History of uterine cancer Maternal Grandfather No problems noted. Paternal Grandmother No problems noted. Paternal Grandfather No problems noted. Social History Social History (Updated 06/21/20 @ 15:23 by Peggy Aaron LPN) Household Members: Children Alcohol intake: unknown Smoking Status: Former smoker Use of substances other than those prescribed or required for medical reasons: No Advance Directives: No Advance Directives Information Provided: Yes Physical Exam Vital Signs: Vital Signs: Last Vital Signs Temp 98.7 F 06/21/20 18:49 Pulse 83 06/21/20 18:49 Resp 19 06/21/20 18:49 BP 137/73 06/21/20 18:49 Pulse Ox 99 06/21/20 18:49 Body Mass Index 23.4 reviewed Const: General: cooperative and healthy appearing; No acute distress or intoxicated appearing Nutritional Appearance: average body habitus Orientation/consciousness: patient oriented x3 HENMT: Head: Yes normal to inspection Ears: hearing grossly normal bilaterally Eyes: General: appearance normal, both eyes and all related structures Visual Jeff: normal visual jeff by confrontation Neck: Neck: Yes normal visual inspection and No tender Thyroid: Thyroid normal Chest: Chest palpation & inspection: normal inspection of the chest Resp: Effort & Inspection: normal respiratory effort Cardio: Jugular venous distension: no JVD GI: Inspection: Yes normal to inspection Palpation (GI): Soft to palpation, not firm, nontender, no guarding, not rigid and no hernias Percussion: Yes normal to percussion Auscultation: normal bowel sounds : General: Yes no CVA tenderness Back/Spine/Pelvis: Back: no CVA tenderness Skin: General skin exam: no rashes or lesions noted Neuro: General: patient oriented x3 Extrem: General: Yes normal to inspection Course Course Course Narrative: 1999 Exam/presentation consistent with mild hyperemesis gravidarum. Did have vague complaint of lower abdominal pain given that she has not had any formal ultrasound I will go ahead and get 1st trimester OB ultrasound check basic labs as well as quant and treat with gradual IV fluids and antiemetics p.r.n.. Reevaluation(s) Reevaluation #1: 2100 Labs thus far stable patient resting comfortably no acute distress. Ultrasound still pending / hCG quant still pending. Sign-out this time with anticipated discharge home with antiemetics. Sign-out to Valerie LANGLEY MDM - OB/Uterine Contractions Medical Records Attestation: I reviewed the patient's medical records. Lab Data Attestation: I reviewed the patient's lab results. Result diagrams: 06/21/20 19:55 06/21/20 19:55 Labs: Lab Results 06/21/20 06/21/20 06/21/20 Range/Units 19:55 19:55 19:55 WBC 10.7 (4.8-10.8) X10*3/uL RBC 4.28 (4.20-5.50) X10*6/uL Hgb 11.7 L (12.0-16.0) g/dl Hct 36.3 L (37-47) % MCV 84.8 (80-98) fL MCH 27.3 (27.0-33.0) pg MCHC 32.2 (31.0-35.0) g/dl RDW 16.0 (11.0-16.0) % Plt Count 248 (160-400) X10*3/uL MPV 11.3 (9.4-12.3) fL Immature Gran % (Auto) 0.4 (0.0-0.4) % Neut % (Auto) 74.7 H (45-73) % Lymph % (Auto) 18.0 L (20-40) % [place] % (Auto) 6.2 (2-11) % Eos % (Auto) 0.4 (0-4) % Baso % (Auto) 0.3 (0-2) % Lymph # (Auto) 1.9 (1.2-4.9) X10*3/uL [place] # (Auto) 0.7 (0.1-1.2) X10*3/uL Eos # (Auto) 0.0 (0.0-0.4) X10*3/uL Baso # (Auto) 0.0 (0.0-0.2) X10*3/uL Abs Immat Gran (auto) 0.04 H (0.00-0.03) X10*3/uL Absolute Neuts (auto) 8.0 (2.0-8.3) X10*3/uL Absolute Nucleated RBC 0.000 (0.0-0.012) X10*3/uL Nucleated RBC % (auto) 0.0 (0.0-0.2) /100WBC Sodium 137 (135-145) mmol/L Potassium 4.0 (3.3-5.1) mmol/l Chloride 105 (96-108) mmol/L Carbon Dioxide 22 (22-29) mmol/L Anion Gap 14 (12-20) BUN 6 L (9-16) mg/dL Creatinine 0.58 (0.5-1.4) mg/dL Estim Creat Clear Calc 125.8 Estimated GFR > 60 Random Glucose 70 (60-115) mg/dL Calcium 9.3 D (8.4-10.2) mg/dL Total Bilirubin 0.4 (0.0-1.0) mg/dL AST 16 (5-31) U/L ALT 18 (0-31) U/L Alkaline Phosphatase 56 (39-117) U/L Total Protein 7.5 (6.5-8.0) g/dL Albumin 4.2 (3.5-5.0) g/dL Urine Color YELLOW Urine Appearance CLOUDY Urine pH 7.0 (5.0-8.0) Ur Specific [place] 1.025 (1.005-1.025) Urine Protein NEG (NEG-TRACE) MG/DL Urine Glucose (UA) NEG (NEG) MG/DL Urine Ketones >=80 (NEG) MG/DL Urine Blood NEG (NEG) Urine Nitrite NEG (NEG) Ur Leukocyte Esterase TRACE H (NEG) Discharge Plan Discharge Clinical Impression: , Hyperemesis gravidarum Prescriptions: No Action vit-iron bisgly-folic 27 mg iron- 1 mg tablet 1 tab PO DAILY RF: 0
[2020-06-21 20:46] LABS: Bacteria Urine 1+ /LPF; Squamous Epithelial Cell Urine 2+ /LPF
[2020-06-21 20:47] LABS: Mucus Urine 2+ /LPF
[2020-06-21 22:00] VITALS: BP 106/65; PULSE 74; RESP 15; O2SAT 98
[2020-06-21] MEDS: Metoclopramide HCl 10 MG/2 ML VIAL IVPUSH (22:34)
== END 2020-06-22 00:08 | disposition home or self-care (01) ==
PROVIDERS: Nurse Practitioner Primary Care; Emergency Provider Student in an Organized Health Care Education/Training Program; PCP Family Medicine
DX: O26.91 Pregnancy related conditions, unspecified, first trimester (principal); O21.0 Mild hyperemesis gravidarum; Z3A.11 11 weeks gestation of pregnancy; Z87.891 Personal history of nicotine dependence
CPT/HCPCS: 36415; 76801; 80053; 81001; 84702; 85025; 87086; 96361; 96374; 99212; 99284; J2765

== ENCOUNTER 2020-07-07 11:05 | Outpatient (REF) | payer MEDICAID, SELFPAY ==
--- NOTE | 2020-07-07 11:12 | US_ITS ---
EXAMINATION: OBSTETRICAL ULTRASOUND, FIRST TRIMESTER HISTORY: 24-year-old at 13.5 weeks of gestation NT screening COMPARISON: 06/21/2020 TECHNIQUE: Real time transabdominal imaging with color and M-mode Doppler. FINDINGS: A single, live IUP CRL of 75 mm c/w 13.5wks is noted. Heart Rate: 152 beats per minute. Normal yolk sac seen. NT was 1.7.mm. NB Present The embryo appears sonographically wnl for this GA. Both maternal ovaries are seen and appear normal. GESTATIONAL AGE: 1. Established GA: 13.5 wks 2. GA from [facility]: 13.5 wks ESTIMATED DATE OF DELIVERY: 1. Established VERONIQUE: 01/07/2021 2. VERONIQUE from [facility]: 01/07/2021 US/US OB 1T nuc measure IMPRESSION: 1. A single live IUP 2. Size equals dates 3. NT of 1.7 mm MFM Consultation: I reviewed the ultrasound findings along with significance of NT measurement. The NT of less than 3mm is generally reassuring. However, the sensitivity for T21 detection is only 60%. I reviewed the availability of serum aneuploidy screening which includes cell-free DNA and placental protein based tests. I discussed the sensitivity, false-positive rate, and other limitations associated with each test. I also reviewed the availability of invasive diagnostic tests that are associated small but definite risk of miscarriage. We also reviewed the differences between screening tests and diagnostic tests. After our discussion, she opted for the First trimester screening that is based on cell-free DNA or non-invasive testing (NIPT). The result will be faxed to your office in approximately 7 days. A follow up at 18 weeks for survey has been scheduled. Thank you very much for this referral. Majority of this visit was spent reviewing her care and counselling her in face to face time: Time spent 30 min.
== END 2020-07-07 11:06 | disposition home or self-care (01) ==
LOC: HO.US 11:05
PROVIDERS: PCP Family Medicine; Visit Provider Advanced Practice Midwife
DX: Z34.90 Encounter for supervision of normal pregnancy, unspecified, unspecified trimester (principal)
CPT/HCPCS: 76813

== ENCOUNTER 2020-07-11 14:54 | Outpatient (REF) | payer MEDICAID, SELFPAY ==
[2020-07-11 16:30] LABS: MANUAL DIFF FLAG NO
[2020-07-11 16:33] LABS: Basophils Percent Auto 0.2 % (0-2); Eosinophils Absolute Auto 0.1 X10*3/uL (0.0-0.4); Eosinophils Percent Auto 0.6 % (0-4); Hematocrit 32.5 % (37-47); Hemoglobin 10.5 g/dl (12.0-16.0); Imm Gran Abs Auto 0.04 X10*3/uL (0.00-0.03); Imm Gran Pct Auto 0.4 % (0.0-0.4); Mean Corpuscular HGB Conc 32.3 g/dl (31.0-35.0); Mean Corpuscular Hemoglobin 27.6 pg (27.0-33.0); Mean Corpuscular Volume 85.3 fL (80-98); Mean Platelet Volume 10.9 fL (9.4-12.3); Monocytes Absolute Auto 0.7 X10*3/uL (0.1-1.2); Monocytes Percent Auto 6.7 % (2-11); Neutrophils Absolute Auto 7.7 X10*3/uL (2.0-8.3); Neutrophils Percent Auto 73.1 % (45-73); Platelet Count 246 X10*3/uL (160-400); Red Blood Count 3.81 X10*6/uL (4.20-5.50); Red Cell Distribution Width 16.3 % (11.0-16.0); White Blood Count 10.5 X10*3/uL (4.8-10.8)
[2020-07-11 17:48] LABS: Amphetamine Screen Urine Not Detected (Not Detect); Barbiturates, Urine Not Detected (Not Detect); Benzodiazepines Screen Urine Not Detected (Not Detect); Cannabinoid Screen Urine POSITIVE (Not Detect); Cocaine Screen Urine Not Detected (Not Detect); Opiate Screen Urine Not Detected (Not Detect); Phencyclidine Screen Urine Not Detected (Not Detect)
[2020-07-12 07:43] LABS: Syphilis Screen Nonreactive (Nonreactive)
[2020-07-12 09:27] LABS: HBsAGNum1 0.15 S/CO (0.00-0.99); Hepatitis B Surface Antigen Negative (Negative); ~HepC Num1 0.05 S/CO (0.00-0.79); ~Hepatitis C Antibody Nonreactive (Nonreactive)
[2020-07-12 09:32] LABS: HIV AB/AG Nonreactive (Nonreactive)
[2020-07-12 14:17] LABS: N. gonorrhoeae RNA TMA NOT DETECTED (NOT DETECTED)
[2020-07-13 15:19] LABS: C. trachomatis RNA TMA NOT DETECTED (NOT DETECTED)
== END 2020-07-11 14:55 | disposition home or self-care (01) ==
LOC: HO.LAB 14:54
PROVIDERS: Visit Provider Advanced Practice Midwife
DX: Z34.90 Encounter for supervision of normal pregnancy, unspecified, unspecified trimester (principal)
CPT/HCPCS: 36415; 80307; 81003; 85025; 86762; 86780; 86787; 86803; 86850; 86900; 86901; 87086; 87340; 87389; 87491; 87591; 88142; 99212

== ENCOUNTER → 2020-08-08 15:13 | Outpatient (BNVA) | payer MEDICAID, SELFPAY | PROVIDERS: Visit Provider Advanced Practice Midwife | DX: Z76.89 Persons encountering health services in other specified circumstances (principal) | CPT/HCPCS: 99212 ==

== ENCOUNTER 2020-08-11 12:25 | Outpatient (REF) | payer MEDICAID, SELFPAY ==
--- NOTE | 2020-08-11 12:28 | US_ITS ---
EXAMINATION: US OBSTETRICAL CLINICAL INFORMATION: 24-year-old at 18.5 weeks of gestation Suspected anomaly COMPARISON: 07/07/2020 TECHNIQUE: Real-time transabdominal ultrasound was performed using C1-5 megahertz transducer. FINDINGS: A single, active, fetus is seen in vertex presentation. The placenta is anterior without previa, and the amniotic fluid volume is wnl. MEASUREMENTS: 1. Biparietal Diameter: 4.1 cm; 18.3 wks 2. Occipital Frontal Diameter: 5.3 cm 3. Head Circumference: 14.9 cm; 18.0 wks 4. Abdominal Circumference: 12.4 cm; 18.1 wks 5. Femur Length: 2.7 cm; 18.1 wks 6. Humerus Length: 2.7 cm; 18.5 wks 7. Tibia Length: 2.4 cm; 18.3 wks 8. Ulna Length: 2.5 cm; 18.6 wks 9. Lateral ventricle: 0.7 cm 10. Cerebellum: 1.8 cm; 18.6 wks 11. Cisterna Magna: 0.34 cm 12. Nuchal Fold: 3.9 mm 13. Heart Rate: 150 beats per minute Rt ovary: normal Lt ovary: normal Cervical length 3.9 cm on T/A. GESTATIONAL AGE: 1. Established GA: 18.5 wks 2. GA from [facility]: 18.6 wks ESTIMATED DATE OF DELIVERY: 1. Established VERONIQUE: 01/07/2021 2. VERONIQUE from [facility]: 01/10/2021 ANATOMY: Choroid plexus cysts are noted. The visualized anatomy includes but not limited to: 1. Cranium: Normal 2. Intracranial anatomy: Right choroid plexus cyst. Otherwise normal intracranial anatomy. 3. face: orbits, lip/palate, profile, nasal bone 4. Heart: four-chamber view of the heart, ventricular septum, foramen ovale, pulmonary vein, left and right outflow tracts, three-vessel view, 3 vessel trachea view, aortic and ductal arches, situs.. 5. Diaphragm: Normal 6. Abdominal wall: Normal 7. Cord Insertion: Normal 8. Spine: Cervical, thoracic, lumbar, sacral. 9. Stomach: Normal size and shape 10. Right Kidney: Normal 11. Left Kidney: Normal 12. 3 vessel cord: Normal 13. Upper extremity: Open hands, fifth digit. 14. Lower extremity: Tibia, fibula, bilateral feet. 15. Bladder: Normal 16. Genitalia: Female, patient aware US/US OB /maternal detail IMPRESSION: 1. Single, living, intrauterine with appropriate biometry. 2. Isolated right choroid plexus cyst. DISCUSSION: Isolated choroid plexus cyst is a benign ultrasound finding. It is seen in approximately 3% of normal fetuses at this gestational age. In the high risk population, its presence has been weekly associated with the trisomy 18. In the setting of low risk NIPT, this is considered a normal variant. I reviewed the nature, scope and approximate prognosis of a child with the trisomy 18. We discussed the limitations of ultrasound in diagnosing aneuploidy and other congenital abnormalities. I reviewed the differences between screening test and diagnostic test. Amniocentesis was discussed and declined. She was informed that the baseline incidence of congenital abnormalities is approximately 3-5%. Not all these conditions are diagnosable in utero. RECOMMENDATIONS: 1. Although it will not be diagnostic, an appropriately grown fetus at 20 weeks of gestation may be reassuring (not scheduled). Thank you for allowing me to participate in her care. Visiting time 30 (5,15,10) minutes. Majority of this visit was spent reviewing and discussing her care.
== END 2020-08-11 12:26 | disposition home or self-care (01) ==
LOC: HO.US 12:25
PROVIDERS: Visit Provider Advanced Practice Midwife
DX: O35.9XX0 Maternal care for (suspected) fetal abnormality and damage, unspecified, not applicable or unspecified (principal); Z3A.18 18 weeks gestation of pregnancy
CPT/HCPCS: 76811

== ENCOUNTER 2020-08-26 09:41 | Outpatient (REF) | payer MEDICAID, SELFPAY | END 2020-08-26 09:42 | disposition home or self-care (01) | LOC: HO.LAB 09:41 | PROVIDERS: Visit Provider Internal Medicine | DX: Z20.822 Contact with and (suspected) exposure to COVID-19 (principal) | CPT/HCPCS: 36415; C9803; U0003; U0005 ==

== ENCOUNTER → 2020-09-25 15:12 | Outpatient (BNVA) | payer MEDICAID, SELFPAY | PROVIDERS: Visit Provider Advanced Practice Midwife | DX: O21.9 Vomiting of pregnancy, unspecified (principal); Z3A.25 25 weeks gestation of pregnancy | CPT/HCPCS: 81003; 99212 ==

== ENCOUNTER 2020-10-27 09:09 | Outpatient (REF) | payer MEDICAID, SELFPAY ==
[2020-10-27 12:53] LABS: Glucose 1 Hour PP 50gm Dose 91 mg/dL (60-140)
[2020-10-27 13:33] LABS: Syphilis Screen Nonreactive (Nonreactive)
[2020-10-28 15:11] LABS: CT PCR NOT DETECTED (Not Detect.); NG PCR NOT DETECTED (Not Detect.)
== END 2020-10-27 09:10 | disposition home or self-care (01) ==
LOC: HO.LAB 09:09
PROVIDERS: PCP Family Medicine; Visit Provider Advanced Practice Midwife
DX: Z34.90 Encounter for supervision of normal pregnancy, unspecified, unspecified trimester (principal)
CPT/HCPCS: 86780; 87491; 87591; 99212

== ENCOUNTER → 2020-11-14 11:13 | Outpatient (BNVA) | payer MEDICAID, SELFPAY | PROVIDERS: Visit Provider Advanced Practice Midwife | DX: Z34.93 Encounter for supervision of normal pregnancy, unspecified, third trimester (principal); Z3A.32 32 weeks gestation of pregnancy | CPT/HCPCS: 99212 ==

== ENCOUNTER 2022-05-26 05:53 | Emergency (ER) | payer MEDICAID, SELFPAY ==
[2022-05-26 06:21] VITALS: BP 118/76; PULSE 86; RESP 16; TEMP 36.3; O2SAT 97; BMI 24.7
--- NOTE | 2022-05-26 09:02 | ED_ITS ---
HPI - General Adult General Chief complaint: Wound/Laceration Stated complaint: Cut on right hand Time Seen by Provider: 05/26/22 09:00 Source: patient Mode of arrival: ambulatory Limitations: no limitations History of Present Illness HPI narrative: Patient is a 26 year old assigned female at with no reported medical history presenting to the emergency department today with a scrap to her right hand. Patient states that yesterday at 3pm, she scraped the top of her right hand. Patient denies any dizziness, lightheadedness, abdominal pain, nausea, vomiting, fever, chills, blurry vision, double vision, loss of vision, chest pain, difficulty breathing, shortness of breath, back pain, night sweats, pain with urination, increased urinary frequency, increased urinary urgency, blood in her urine or stool, syncope or a near syncopal episode, recent trauma or falls, bowel incontinence, bladder incontinence, bowel retention, bladder retention, or any other complaints at this time. Onset (ago): day(s) (1) Location: right and upper extremity Radiation: non-radiation Severity: mild Severity scale (1-10): 2 Quality: dull Pain Consistency: constant Relieving factors: none Exacerbating factors: none Associated symptoms: denies other symptoms Treatments prior to arrival: none Related Data Home Medications Medication Instructions Recorded Confirmed vitamins-iron 1 tab PO DAILY 06/21/20 11/14/20 bisglycinate 27 mg iron-folic acid 1 mg tablet Previous Rx's Medication Instructions Recorded nitrofurantoin 100 mg PO BID uti 7 days #14 caps 06/21/20 monohydrate/macrocrystals 100 mg capsule (Macrobid) prochlorperazine maleate 10 mg 10 mg PO Q6H PRN nausea and 06/21/20 tablet (Compazine) vomiting #30 tabs famotidine 10 mg tablet (Pepcid AC) 10 mg PO BID #60 tabs 08/08/20 ondansetron HCl 4 mg tablet 4 mg PO Q6H PRN nausea and 08/08/20 (Zofran) vomiting #14 tabs pyridoxine (vitamin B6) 25 mg 25 mg PO TID PRN nausea and 09/25/20 tablet (Vitamin B-6) vomiting #90 tabs Allergies Allergy/AdvReac Type Severity Reaction Status Date / Time No Known Allergies Allergy Verified 11/14/20 11:26 [No Known Allergies*] Review of Systems Constitutional: Constitutional: Reports no additional constitutional complaints, Denies chills, Denies fever(s) and Denies night sweats Eyes: Eyes: Reports no additional eye complaints, Denies blurry vision, Denies change in vision, Denies diplopia, Denies eye discharge, Denies loss of vision and Denies eye pain ENT: Denies dizziness Cardiovascular: Cardiovascular: Reports no additional cardiovascular complaints, Denies chest pain, Denies lightheadedness, Denies Loss of Consciousness and Denies dyspnea Respiratory: Respiratory: Reports no additional respiratory complaints and Denies dyspnea Gastrointestinal: Gastrointestinal: Reports no additional gastrointestinal complaints, Denies abdominal pain, Denies melena, Denies hematochezia, Denies change in bowel habits and Denies change in stool character Genitourinary: Genitourinary: Denies hematuria, Denies urinary frequency, Denies dysuria, Denies urinary incontinence, Denies urinary hesitancy and Denies urinary urgency Musculoskeletal: Musculoskeletal: Reports no additional musculoskeletal complaints, Denies numbness and Denies tingling Integumentary/Breasts: Comments: abrasion to the right hand Neurologic: Denies dizziness, Denies loss of vision, Denies numbness and Denies tingling Psychiatric: Psychiatric: Reports no additional psychiatric complaints Endocrine: Endocrine: Reports no additional endocrine complaints Hematologic/Lymphatic: Hematologic/Lymphatic: Reports no additional hematologic/lymphatic complaints Allergic/Immunologic: Allergic/Immunologic: Reports no additional allergic/immunologic complaints [facility] Past Medical History Attestation statement: The following information was validated with the patient. Source: old records reviewed Medical History Anemia Tachycardia Family History Family History Mother No problems noted. Father No problems noted. Maternal Grandmother History of uterine cancer Maternal Grandfather No problems noted. Paternal Grandmother No problems noted. Paternal Grandfather No problems noted. Social History Social History Household Members: Children Housing Other:: Penitentiary Are you a primary manager managed care to a significant other at home: No Do you presently have visiting nurse or other home services: No Alcohol intake: never Substance Use Type: Marijuana Advance Directives: No Advance Directives Information Provided: No Physical Exam ED Vital Signs: Vital Signs - 24 hr 05/26/22 06:21 Temperature 97.4 F Pulse Rate 86 Respiratory Rate 16 Blood Pressure 118/76 Pulse Oximetry 97 Oxygen Delivery Method Room Air BMI result Body Mass Index 24.7 Const General: cooperative, no acute distress, alert and awake Nutritional Appearance: well nourished Orientation/consciousness: patient oriented x3 Limitations: no limitations HENMT Head: Yes normal to inspection and Yes atraumatic Ears: hearing grossly normal bilaterally and external ears normal General nose exam: Normal external nose present, no nasal discharge noted and no epistaxis Face and sinus: Yes normal facial exam, No abrasion and No laceration Mouth: Normal oral and palatal mucosa present, no drooling and no muffled voice Eyes General: appearance normal, both eyes and all related structures Periorbital: periorbital findings normal Eyelids: Yes eyelids normal Conjunctivae: conjunctivae normal Pupils: Equal, round and reactive pupils present EOM: EOMs intact bilaterally Neck Neck: Yes normal visual inspection, Yes full ROM and Yes no lymphadenopathy Chest Chest palpation & inspection: normal inspection of the chest Resp Effort & Inspection: normal respiratory effort and able to speak in complete sentences Auscultation: clear to auscultation bilaterally Cardio Rate: regular rate Rhythm: regular rhythm GI Inspection: Yes normal to inspection Skin Other: small abrasion to the dorsal aspect of the right hand between the 4th and 5th MCP, no active bleeding Neuro General: patient oriented x3 and moves all extremities Cranial nerves: Yes Equal, round and reactive pupils present Cognition (Neuro): normal cognition Motor exam (neuro): 5/5 motor strength present throughout Sensory Exam: Normal double simultaneous stimulation for sensation Coordination: [id number]-[id number] test normal Extrem General: Yes full ROM and Yes capillary refill normal Psych Appearance: grossly normal Mental Status: mental status grossly normal Affect: normal affect Attitude: cooperative Thought process: Normal thought process present Thought content: Normal thought content present Insight: Good insight present (Psych) Medical Decision Making MDM Narrative Medical decision making narrative: Patient is a 26 year old assigned female at with no reported medical history presenting to the emergency department today with an abrasion to her right hand. Patient's physical exam showed a very small and superficial abrasion to the dorsal aspect of the right hand between the 4th and 5th MCP with no active bleeding or gaping areas. I explained my physical exam findings to the patient. I answered all questions asked by the patient. I stressed the importance of the patient taking her medication as prescribed. I stressed the importance of the patient following up with her primary care provider. I st ressed the importance of the patient returning to the emergency department immediately if her symptoms were to worsen or if she were to develop any dizziness, shortness of breath, difficulty breathing, chest pain, blurry vision, loss of vision, nausea, vomiting, abdominal pain, fever, chills, back pain, or any other complaints. Patient verbalized agreement and understanding with this treatment plan and discharge. Medical Records Medical records reviewed: Yes I reviewed the patient's medical records. Discharge Plan Discharge Clinical Impression: Avulsion of skin Patient Disposition: Home, Self-Care Instructions: Skin Avulsion (ED) Additional Instructions: Follow up with your primary care provider. Return to the emergency department immediately if your symptoms worsen or if you develop any dizziness, shortness of breath, difficulty breathing, chest pain, blurry vision, loss of vision, nausea, vomiting, abdominal pain, fever, chills, back pain, or any other complaints. Prescriptions: No Action prochlorperazine maleate [Compazine] 10 mg tablet 10 mg PO Q6H PRN (Reason: nausea and vomiting) Qty: 30 0RF nitrofurantoin monohyd/m-cryst [Macrobid] 100 mg capsule 100 mg PO BID 7 Days Qty: 14 0RF Rx Instructions: must administer with a meal/food vit-iron bisgly-folic 27 mg iron- 1 mg tablet 1 tab PO DAILY famotidine [Pepcid AC] 10 mg tablet 10 mg PO BID Qty: 60 1RF ondansetron HCl [Zofran] 4 mg tablet 4 mg PO Q6H PRN (Reason: nausea and vomiting) Qty: 14 0RF pyridoxine (vitamin B6) [Vitamin B-6] 25 mg tablet 25 mg PO TID PRN (Reason: nausea and vomiting) Qty: 90 3RF Rx Instructions: may take every 6-8 hours for nausea Referrals: Nae Stockton MD [Primary Care Provider] - Stand Alone Forms: Work/School Release Interventions: ED Discharge Assessment Last Done: 05/26/22 09:38 Discharge Date/Time: 05/26/22 09:40 Print Language: Belgian
== END 2022-05-26 09:40 | disposition home or self-care (01) ==
PROVIDERS: Emergency Provider Emergency Medicine; PCP Family Medicine
DX: S60.511A Abrasion of right hand, initial encounter (principal); X58.XXXA Exposure to other specified factors, initial encounter; Y93.9 Activity, unspecified; Y92.9 Unspecified place or not applicable; Y99.9 Unspecified external cause status; Z79.899 Other long term (current) drug therapy
CPT/HCPCS: 99283

== ENCOUNTER 2023-04-09 16:26 | Outpatient (REF) | payer MEDICAID, SELFPAY ==
[2023-04-09 16:43] LABS: MANUAL DIFF FLAG NO
[2023-04-09 17:35] LABS: Basophils Absolute Auto 0.1 X10*3/uL (0.0-0.2); Basophils Percent Auto 0.5 % (0-2); Eosinophils Absolute Auto 0.1 X10*3/uL (0.0-0.4); Eosinophils Percent Auto 1.4 % (0-4); Hematocrit 38.8 % (37.0-47.0); Hemoglobin 12.4 g/dl (12.0-16.0); Imm Gran Abs Auto 0.05 X10*3/uL (0.00-0.03); Imm Gran Pct Auto 0.5 % (0.0-0.4); Lymphocytes Absolute Auto 3.6 X10*3/uL (1.2-4.9); Lymphocytes Percent Auto 35.5 % (20-40); Mean Corpuscular Hemoglobin 28.8 pg (27.0-33.0); Mean Platelet Volume 11.9 fL (9.4-12.3); Monocytes Absolute Auto 0.6 X10*3/uL (0.1-1.2); Monocytes Percent Auto 6.1 % (2-11); Neutrophils Absolute Auto 5.6 x10*3/uL (2.0-8.3); Platelet Count 236 X10*3/uL (160-400); Red Blood Count 4.31 X10*6/uL (4.20-5.50)
[2023-04-09 17:44] LABS: D Dimer High Sensitivity < 150 NG/ML
[2023-04-09 18:25] LABS: Anion Gap 12 (12-20); Blood Urea Nitrogen 11 mg/dL (9-16); Calcium 9.5 mg/dL (8.4-10.2); Carbon Dioxide 25 mmol/L (22-29); Chloride 107 mmol/L (96-108); Estimated Glomerular Filt Rate > 60; Glucose Random 81 mg/dL (60-115); Potassium 4.1 mmol/L (3.3-5.1); Sodium 140 mmol/L (135-145)
[2023-04-09 18:34] LABS: TSH reflex Free T4 1.75 uIU/mL (0.32-4.0)
== END 2023-04-09 16:27 | disposition home or self-care (01) ==
LOC: HO.LAB 16:26
PROVIDERS: Absent Provider Family Medicine; PCP Family Medicine; Visit Provider Emergency Medicine
DX: R07.9 Chest pain, unspecified (principal)
CPT/HCPCS: 36415; 80048; 84443; 85025; 85379

== ENCOUNTER 2023-04-18 08:38 | Outpatient (REF) | payer MEDICAID, SELFPAY ==
--- NOTE | 2023-04-18 | PFT_ITS ---
Forced vital capacity 94%. FEV1 93%. FEV1/FVC ratio is 85. XVL70-81 is 82% and MVV 50%. Post bronchodilator therapy, there is no change. Total lung capacity 79%, residual volume 25%, and SVC 98%. Diffusion capacity 114% CONCLUSION: The spirometry findings are basically normal, and there is no response to bronchodilator therapy. MVV moderately reduced and this is most likely effort related. Lung volumes, the total lung capacity is only slightly reduced, but residual volume is markedly reduced. I think this is due to technical reason, and clinical correlation will be recommended. So basically, I do not think the patient has any obstructive or restrictive pulmonary disorder. Roger Nation MD MSB/MODL / [phone]
== END 2023-04-18 08:39 | disposition home or self-care (01) ==
LOC: HO.RESP 08:38
PROVIDERS: PCP Family Medicine; Visit Provider Family Medicine
DX: R06.2 Wheezing (principal)
CPT/HCPCS: 94010; 94727; 94729

== ENCOUNTER → 2023-04-18 08:40 | Outpatient (BNV) | payer MEDICAID, SELFPAY | PROVIDERS: PCP Family Medicine; Visit Provider Internal Medicine | DX: R06.2 Wheezing (principal) | CPT/HCPCS: 94060; 94727; 94729 ==

== ENCOUNTER 2023-07-23 08:39 | Outpatient (AMB) | payer MEDICAID, SELFPAY ==
[2023-07-23 08:46] VITALS: BP 122/76; PULSE 88; BMI 25.8
--- NOTE | 2023-07-23 08:46 | A.OFFVIS_ITS ---
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 She is a pleasant 27-year-old woman with no significant past medical history. About couple months ago she had severe chest pressure which she describes as pressure on the right parasternal sternal area which was quite severe. Started as a whole day discomfort and then subsequently she continued to have this chest pressure for many hours for about 2 weeks. She had no associated symptoms of tachycardia or shortness of breath or diaphoresis. Because of the severity of the chest discomfort she ended up going to the hospital in [place]. There they did EKG and told her that this was anxiety related pain. She was then given some antianxiety pill and she felt that she got relaxed but the chest pain persisted. She was then sent home. No blood work was done. Patient EKG done in said that EKG was within normal limits. Subsequently patient says that she has felt well. She has not had any recurrent pain. She says that she has had these kind of pain since age of 17 however this pain was most severe. She gets intermittent chest pains. She said this could be stress related as she has a 2-year-old active child which keeps her busy. However since then she has been exerting herself and has had no recurrent chest pain. She got worried about this chest pain syndrome as her father had myocardial infarction at age 57. She denies any smoking, doing any drugs. She has prior history of tachycardia although this is not been diagnosed as to any particular cause. PENDING SALE TO [facility] Medical History (Updated 07/23/23 @ 09:26 by Travis Mendez MD) Tachycardia Anemia Family History Mother No problems noted. Father No problems noted. Maternal Grandmother History of uterine cancer Maternal Grandfather No problems noted. Paternal Grandmother No problems noted. Paternal Grandfather No problems noted. Social History Household Members: Children Both parents involved: No Housing Other:: Care Home Are you a primary health care coach to a significant other at home: No Do you presently have visiting nurse or other home services: No Alcohol intake: never Substance Use Type: Marijuana Female Reproductive History Menstrual Age of Menarche: 14 Review of Systems Const Denies chills, Denies daytime sleepiness, Denies fatigue, Denies fever(s), Denies frequent falls, Denies poor appetite, Denies snoring, Denies stops breathing during sleep, Denies weakness, Denies weight gain and Denies weight loss Eyes Denies loss of vision ENT Denies dizziness and Denies hearing loss Card Denies chest pain, Denies claudication, Denies leg edema, Denies lightheadedness, Denies palpitations, Denies dyspnea, Denies dyspnea on exertion and Denies orthopnea Resp Denies cough, Denies excessive phlegm production, Denies dyspnea, Denies dyspnea on exertion, Denies snoring and Denies wheezing GI Denies abdominal pain, Denies hematochezia, Denies change in bowel habits, Denies nausea and Denies vomiting Denies urinary frequency and Denies dysuria Musc Denies arthralgias, Denies muscle weakness, Denies numbness and Denies other (frequent falls) Skin/Breast Denies nail changes and Denies rash Neuro Denies Abnormal speech present, Denies dizziness, Denies frequent falls, Denies loss of vision, Denies memory loss, Denies numbness and Denies weakness Psych Denies depression and Denies memory loss Endo Denies fatigue and Denies palpitations Guido/Lymph Reports easy bruising and Reports other (anemia) Aller/Immun Denies wheezing Physical Exam Vital Signs: Last Vital Signs Pulse 88 07/23/23 08:46 BP 122/76 07/23/23 08:46 BMI result Body Mass Index 25.8 Const General: cooperative, comfortable, no acute distress, well developed, alert, awake and Physically active Nutritional Appearance: average body habitus and well nourished Orientation/consciousness: patient oriented x3 Limitations: no limitations HEENT Head: Yes normocephalic and Yes atraumatic Neck Neck: Yes trachea midline, Yes supple and Yes no JVD Resp Effort & Inspection: normal respiratory effort Auscultation: clear to auscultation bilaterally Cardio Jugular venous distension: no JVD Palpation: normal PMI Rate: regular rate Rhythm: regular rhythm Heart sounds: S1 normal heart sound present, S2 normal heart sound present, no click, no gallops, no murmurs and no rubs GI Auscultation: normal bowel sounds Skin General skin exam: no rashes or lesions noted Neuro General: patient oriented x3 and no focal motor deficits Speech: No Abnormal speech present Extrem General: Yes no clubbing, cyanosis or edema Psych Appearance: grossly normal Office Procedures EKG Details: EKG shows normal sinus rhythm normal EKG [id number], Complete Assessment & Plan Assessment & Plan (1) Non-cardiac chest pain: Code(s): R07.89 - Other chest pain Plan: Patient's chest pain is not suggestive cardiac etiology including not suggestive ischemic etiology. Most likely suggestive musculoskeletal discomfort either related to costochondritis and/or muscular strain or sprain. Unlikely to represent any calls from cardiac issue as she has no significant risk factors in the character of pain is very atypical for cardiac cause of chest pain. This was discussed with her in details. She was satisfied with this. I do not think she requires any further workup as this would lead only to high likelihood of false positive testing and with low yield. She understands management. She continues to have recurrent chest discomfort than pursuing further workup from GI perspective can be considered. Will follow up in the clinic if need be. Coding Level of Care Code New Pt Level 3 (02888) Diagnoses Non-cardiac chest pain R07.89 CPT Codes EKG - CPT: 23317-[id number], Complete ([id number])
== END 2023-07-23 09:32 | disposition home or self-care (01) ==
PROVIDERS: PCP Family Medicine; Referring Provider Family Medicine; Visit Provider Internal Medicine Cardiovascular Disease
DX: R07.89 Other chest pain (principal)
CPT/HCPCS: 93010; 99203

== ENCOUNTER → 2023-07-23 08:39 | Outpatient (BNVA) | payer MEDICAID, SELFPAY | PROVIDERS: PCP Family Medicine; Visit Provider Internal Medicine Cardiovascular Disease | DX: R07.89 Other chest pain (principal) | CPT/HCPCS: 93005; 99202 ==

== ENCOUNTER 2023-10-22 10:58 | Outpatient (REF) | payer MEDICAID, SELFPAY ==
--- NOTE | ~2023-10-22 | XR_ITS ---
EXAMINATION: XR THORACIC SPINE CLINICAL INFORMATION: Chronic midline thoracic spine pain. COMPARISON: Radiographs dated 02/16/2018. TECHNIQUE: 3 views of the thoracic spine were obtained. FINDINGS: There is no fracture or bone destruction seen and the vertebral alignment is normal. There is no disc space narrowing. There is no abnormality of the paraspinal soft tissues. XR/XR thoracic spine 2V IMPRESSION: Unremarkable examination. EXAMINATION: XR LUMBOSACRAL SPINE CLINICAL INFORMATION: Chronic midline lower back pain. COMPARISON: Radiographs dated 02/16/2018. TECHNIQUE: AP and lateral views of the lumbar spine and lateral view of the lumbosacral junction. FINDINGS: The vertebral bodies and posterior elements are normal. The disc spaces are preserved and the vertebral alignment is normal. The paraspinal soft tissues are normal. There are multiple pelvic phleboliths. IMPRESSION: Unremarkable examination.
--- NOTE | ~2023-10-22 | XR_ITS ---
EXAMINATION: XR THORACIC SPINE CLINICAL INFORMATION: Chronic midline thoracic spine pain. COMPARISON: Radiographs dated 02/16/2018. TECHNIQUE: 3 views of the thoracic spine were obtained. FINDINGS: There is no fracture or bone destruction seen and the vertebral alignment is normal. There is no disc space narrowing. There is no abnormality of the paraspinal soft tissues. XR/XR lumbar spine 2-3V IMPRESSION: Unremarkable examination. EXAMINATION: XR LUMBOSACRAL SPINE CLINICAL INFORMATION: Chronic midline lower back pain. COMPARISON: Radiographs dated 02/16/2018. TECHNIQUE: AP and lateral views of the lumbar spine and lateral view of the lumbosacral junction. FINDINGS: The vertebral bodies and posterior elements are normal. The disc spaces are preserved and the vertebral alignment is normal. The paraspinal soft tissues are normal. There are multiple pelvic phleboliths. IMPRESSION: Unremarkable examination.
[2023-10-22 13:21] LABS: MANUAL DIFF FLAG NO
[2023-10-22 13:41] LABS: Basophils Absolute Auto 0.1 X10*3/uL (0.0-0.2); Basophils Percent Auto 0.8 % (0-2); Eosinophils Absolute Auto 0.1 X10*3/uL (0.0-0.4); Eosinophils Percent Auto 1.1 % (0-4); Hematocrit 40.6 % (37.0-47.0); Hemoglobin 13.2 g/dl (12.0-16.0); Imm Gran Abs Auto 0.05 X10*3/uL (0.00-0.03); Imm Gran Pct Auto 0.7 % (0.0-0.4); Lymphocytes Absolute Auto 2.2 X10*3/uL (1.2-4.9); Mean Corpuscular HGB Conc 32.5 g/dl (31.0-35.0); Mean Corpuscular Hemoglobin 29.3 pg (27.0-33.0); Mean Corpuscular Volume 90.2 fL (80.0-98.0); Mean Platelet Volume 11.3 fL (9.4-12.3); Monocytes Absolute Auto 0.5 X10*3/uL (0.1-1.2); Monocytes Percent Auto 6.8 % (2-11); Neutrophils Absolute Auto 4.6 x10*3/uL (2.0-8.3); Neutrophils Percent Auto 61.6 % (45-73); Platelet Count 264 X10*3/uL (160-400); Red Cell Distribution Width 14.3 % (11.0-16.0); White Blood Count 7.5 X10*3/uL (4.8-10.8)
[2023-10-22 14:05] LABS: Iron 45 mcg/dL (30-160); Percent Iron Saturation 13 % (15-50); Total Iron Binding Capacity 348 mcg/dL (228-428); Unsaturated Iron Binding 303 ug/dL
[2023-10-22 14:13] LABS: Ferritin 13 ng/mL (10-122); TSH reflex Free T4 0.77 uIU/mL (0.32-4.0); Vitamin D 25-OH Total 20.5 ng/mL (>30)
[2023-10-22 14:32] LABS: Folate 12.9 ng/mL (> or = 4.0); Vitamin B12 800 pg/mL (200-900)
[2023-10-23 07:04] LABS: HBS Num1 1.29 mIU/mL (0-7.99); HBc Num1 0.08 S/CO (0.00-0.79); HBsAGNum1 0.39 S/CO (0.00-0.99); HIV AB/AG Nonreactive (Nonreactive); HIV Num 1 0.06 S/CO (0.00-0.99); Hepatitis B Core Antibody Nonreactive (Nonreactive); Hepatitis B Surface Antigen Negative (Negative); ~HepC Num1 0.09 S/CO (0.00-0.79); ~Hepatitis B Surface Antibody NONREACTIVE (Nonreactive); ~Hepatitis C Antibody Nonreactive (Nonreactive)
[2023-10-23 07:18] LABS: Syphilis Screen Nonreactive (Nonreactive)
== END 2023-10-22 10:59 | disposition home or self-care (01) ==
LOC: HO.HHCL 10:58
PROVIDERS: Visit Provider Family Medicine
DX: E55.9 Vitamin D deficiency, unspecified (principal); M54.6 Pain in thoracic spine; G89.29 Other chronic pain; M54.50 Low back pain, unspecified; Z11.3 Encounter for screening for infections with a predominantly sexual mode of transmission; Z86.2 Personal history of diseases of the blood and blood-forming organs and certain disorders involving the immune mechanism
CPT/HCPCS: 36415; 72070; 72100; 82306; 82607; 82728; 82746; 83540; 84443; 85025; 86704; 86706; 86780; 86803; 87340; 87389

== ENCOUNTER 2024-04-27 10:43 | Outpatient (REF) | payer MEDICAID, SELFPAY ==
[2024-04-27 11:39] LABS: MANUAL DIFF FLAG NO
[2024-04-27 11:47] LABS: Basophils Absolute Auto 0.1 X10*3/uL (0.0-0.2); Basophils Percent Auto 1.1 % (0-2); Eosinophils Absolute Auto 0.1 X10*3/uL (0.0-0.4); Hematocrit 39.2 % (37.0-47.0); Imm Gran Abs Auto 0.02 X10*3/uL (0.00-0.03); Imm Gran Pct Auto 0.3 % (0.0-0.4); Lymphocytes Absolute Auto 2.2 X10*3/uL (1.2-4.9); Mean Corpuscular HGB Conc 33.2 g/dl (31.0-35.0); Mean Corpuscular Hemoglobin 29.5 pg (27.0-33.0); Mean Corpuscular Volume 88.9 fL (80.0-98.0); Mean Platelet Volume 11.6 fL (9.4-12.3); Monocytes Absolute Auto 0.4 X10*3/uL (0.1-1.2); Monocytes Percent Auto 6.7 % (2-11); Neutrophils Absolute Auto 3.4 x10*3/uL (2.0-8.3); Neutrophils Percent Auto 54.9 % (45-73); Platelet Count 236 X10*3/uL (160-400); Red Blood Count 4.41 X10*6/uL (4.20-5.50); Red Cell Distribution Width 13.2 % (11.0-16.0); White Blood Count 6.1 X10*3/uL (4.8-10.8)
[2024-04-27 12:27] LABS: Alanine Aminotransferase 12 U/L (0-31); Albumin Level 4.5 g/dL (3.5-5.0); Alkaline Phosphatase 56 U/L (39-117); Anion Gap 12 (12-20); Aspartate Amino Transferase 15 U/L (5-31); Bilirubin Total 0.5 mg/dL (0.0-1.0); Blood Urea Nitrogen 11 mg/dL (9-16); Calcium 9.1 mg/dL (8.4-10.2); Carbon Dioxide 27 mmol/L (22-29); Chloride 106 mmol/L (96-108); Estimated Glomerular Filt Rate > 60; Glucose Random 85 mg/dL (60-115); Iron 195 mcg/dL (30-160); Percent Iron Saturation 67 % (15-50); Potassium 3.7 mmol/L (3.3-5.1); Sodium 141 mmol/L (135-145); Total Iron Binding Capacity 292 mcg/dL (228-428); Total Protein 7.3 g/dL (6.5-8.0); Unsaturated Iron Binding 97 ug/dL
[2024-04-27 12:32] LABS: Ferritin 27 ng/mL (10-122); TSH reflex Free T4 2.24 uIU/mL (0.32-4.0); Vitamin D 25-OH Total 18.7 ng/mL (>30)
== END 2024-04-27 10:44 | disposition home or self-care (01) ==
LOC: HO.HHCL 10:43
PROVIDERS: Visit Provider Family Medicine
DX: Z86.2 Personal history of diseases of the blood and blood-forming organs and certain disorders involving the immune mechanism (principal); E55.9 Vitamin D deficiency, unspecified; R63.5 Abnormal weight gain
CPT/HCPCS: 36415; 80053; 82306; 82728; 83540; 84443; 85025

== ENCOUNTER 2024-05-25 16:41 | Outpatient (REF) | payer MEDICAID, SELFPAY ==
[2024-05-25 18:23] LABS: Iron 123 mcg/dL (30-160); Percent Iron Saturation 40 % (15-50); Total Iron Binding Capacity 304 mcg/dL (228-428); Unsaturated Iron Binding 181 ug/dL
[2024-05-25 18:38] LABS: Ferritin 20 ng/mL (10-122)
[2024-05-26 12:08] LABS: CT PCR NOT DETECTED (Not Detect.); NG PCR NOT DETECTED (Not Detect.)
== END 2024-05-25 16:42 | disposition home or self-care (01) ==
LOC: HO.HHCL 16:41
PROVIDERS: Visit Provider Family Medicine
DX: R79.0 Abnormal level of blood mineral (principal); Z11.3 Encounter for screening for infections with a predominantly sexual mode of transmission
CPT/HCPCS: 82728; 83540; 87491; 87591

== ENCOUNTER 2024-10-25 11:08 | Outpatient (REF) | payer MEDICAID, SELFPAY ==
--- NOTE | ~2024-10-25 | XR_ITS ---
EXAMINATION: XR KNEE, RIGHT CLINICAL INFORMATION: right knee pain COMPARISON: None available. TECHNIQUE: Three views of the right knee. FINDINGS: No acute cortical disruption or malalignment. No lytic or blastic lesions. No suprapatellar bursa joint effusion. No metallic or radiopaque foreign body. No subcutaneous emphysema. XR/XR knee RT 3V IMPRESSION: Normal right knee. Electronically signed by: Santino Boyd MD 10/26/2024 08:00 AM EDT
--- NOTE | ~2024-10-25 | XR_ITS ---
EXAMINATION: XR HIP, RIGHT CLINICAL INFORMATION: right hip pain COMPARISON: None available. TECHNIQUE: Two views of the right hip. FINDINGS: No fracture. Alignment is anatomic. Hip joint space is maintained. Normal acetabular coverage. Soft tissues are unremarkable. XR/XR hip RT min 2V IMPRESSION: Normal right hip. Electronically signed by: Michael Vazquez MD 10/26/2024 08:30 AM EDT
--- NOTE | ~2024-10-25 | XR_ITS ---
EXAMINATION: XR TIBIA AND FIBULA, RIGHT CLINICAL INFORMATION: right lower leg pain COMPARISON: None available. TECHNIQUE: AP and lateral views of the right tibia and fibula were obtained. FINDINGS: No acute cortical disruption. No periosteal bone reaction. No lytic or blastic lesions. No gross malalignment between the proximal and distal joints. No metallic or radiopaque foreign body. No subcutaneous emphysema. XR/XR tibia fibula RT 2V IMPRESSION: Normal right tibia and fibula. Electronically signed by: Santino Boyd MD 10/26/2024 07:46 AM EDT
--- OUTSIDE RECORDS SUMMARY | 2024-10-25 13:22 | XMS_ITS | Encounter Summary ---
Author Organization [employer] Address [address] [place] [address] Care Team Providers Care Chart Clerk Name Role Phone Nae Stockton MD Primary Care Provider [phone] Encounter Details Date Type Department Care Team ([facility] st Contact Info) Description 06/24/2023 Abstract [facility] MEDICINE [address], [place] [phone] Nae Stockton MD [address] [place], [place] [phone] Social History Tobacco Use Types Packs/Day Years Used Date Smoking Tobacco: Never Passive Smoke Exposure: Never Smokeless Tobacco: Never Depression Answer Date Recorded Patient Health Questionnaire-9 Score 0 10/17/2022 Housing Stability Answer Date Recorded What is your housing situation today? I have brianna ayers 05/05/[address] you li ve. Do you have problems with any of the following? None of the above 05/05/2023 Food Insecurity Answer Date Recorded Within the past 12 months, y ou worried that your food would run out before you got money to buy more: Never True 05/05/2023 Within the past 12 months,th e food you bought just didn't last and you didn't have enough money to get more: Never True Transportation Answer Date Recorded In the past 12 months, has l ack of transportation kept you from medical appts, meetings, work or from getting things needed for daily living? No 05/05/2023 Utilities Answer Date Recorded In the past 12 months, has t he electric, gas, oil or water company threatened to shut off services in your home? No 05/05/2023 Depression Answer Date Recorded Patient Health Questionnaire-2 Score 0 10/17/2022 Comments Unknown Sex and Gender Information Value Date Recorded Sex Assigned at Female 05/20/2022 10:21 AM EDT Legal Sex Female 10:21 AM EDT Gender Identity Female 05/20/2022 10:21 AM EDT Sexual Orientation Straight 05/20/2022 10 :21 AM EDT documented as of this encounter Plan of Treatment Not on file documented as of this encounter Procedures Procedure Name Priority Date/Time Associated Diagnosis Comments PAP/HPV Routine 07/09/2020 documented in this encounter Results * Pap Smear (07/09/2020) Pap Negative for intraephithelial lesion or malignancy Negative for intraephithelial lesion or malignancy, Other Nae Stockton MD HEALTH MAINTENANCE Final Result documented in this encounter Visit Diagnoses Not on filedocumented in this encounter Additional Health Concerns Assessment Noted Time PHQ-9 Depression Total Score: 0 10/18/19 23 10:54 AM EDT documented as of this encounter Care Teams Chart Clerk Relationship Specialty Start Date End Date Nae Stockton MD [address] [place] [id number] PCP - General Family Medicine 12/09/13 documented as of this encounter
--- OUTSIDE RECORDS SUMMARY | 2024-10-25 13:22 | XMS_ITS | Data Portability ---
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 Patient's health history and physical exam shows all normal findings as indicated on the attached DOT examination report. Patient meets standards and qualifies for a 2 year certificate. [email or web address] Not available 07/02/2024 11:29:05 Plan of Treatment Reminders Order Date Submit Date Provider Last Modified By Organization Details Last Modified Time Details Appointments None record ed. Lab None record ed. Referral None record ed. Procedures None record ed. Surgeries None record ed. Imaging None record ed. Medication Orders None record ed. Patient TargetsNo targets recorded. Patient InstructionsNo instructions recorded. Reason for Referral None Reported. Medical Equipment None Reported. Vitals None Recorded Social History None recorded. Functional Status None recorded. Mental Status None recorded. Family History Nothing Reported. Medical History No medical history recorded. Gynecological HistoryNo gynecological history recorded. Obstetrics History GPAL:G 0 P 0 0 0 0 Past Encounters Encounter ID Performer Location Encounter Start Date Encounter Closed Date Diagnosis/Indication Diagnosis SNOMED-CT Code Diagnosis ICD10 Code Diagnosis Note [id number] KORIN Burr [address] [address] 07/02/2024 11:14:38 07/04/2024 19:43:23 History and physical examination, pre-employment [id number] Z02.1 Health Concerns Section Related Observation LastModified by Organization Detai ls LastModified Time None Recorded Concern Status LastModified by Organization Details LastModified Time None Recorded Advance Directives Directive None Recorded Payers Encounter Date Sequence Insurance Name Policy Number Policy Gooden Covered Member ID Gooden Member ID Guarantor Name 07/02/2024 1 *SELF PAY* Roland Paulino Notes Date Note Type Note Provider Name and Address Organization Details Recorded Time 07/02/2024 text/html Patient comes into the office today for DOT physical as noted in the attached DOT form. KORIN Burr [address] [place] [address], [facility] [address], [place], [address], [facility] 07/02/2024 11:29:12 OBGyn Episode No OBEpisode recorded.
--- OUTSIDE RECORDS SUMMARY | 2024-10-25 13:22 | XMS_ITS | Referral Summary ---
Author Organization [facility] Address [address] [place], [place] [id number] Care Team Providers Care Conductor And Engineer Name Role Phone Nae Stockton Primary Care Provider [phone] Encounters Date Type Department Care Team Description 10/11/2024 Telephone [facility] Colorectal Surgery [address] [place] [phone] Sheriff Sergeant: El Wong MD 10/07/2024 Telephone [facility] Colorectal Surgery [address] [place] [address] Sheriff Sergeant: Martita Ferro NP 10/05/2024 Telephone [facility] Colorectal Surgery [address] [place] [address] Sheriff Sergeant: Martita Ferro NP from Last 3 Months Allergies No known active allergies Medications cetirizine (ZyrTEC) 10 mg tablet Take 10 mg by mouth once a day. Active montelukast (SINGULAIR) 10 mg tablet Take 10 mg by mouth nightly. Active fluticasone propionate (FLONASE) 50 mcg/actuation nasal spray Administer 1 spray into each nostril once a day. Active albuterol (PROAIR HFA,VENTOLIN HFA) 90 mcg inhaler Inhale 1-2 puffs by mouth every 6 hours as needed for wheezing or shortness of breath. Use with spacer. Active Active Problems No known active problems Social History Tobacco Use Types Packs/Day Years Used Date Smoking Tobacco: Never Smokeless Tobacco: Never Tobacco Cessation:Counseling Given: Not Answered Alcohol Use Standard Drinks/Week Comments Never 0 (1 standard drink = 0.6 oz pur e alcohol) Comments Unknown Sex and Gender Information Value Date Recorded Sex Assigned at Female 02/04/2024 12:14 PM EDT Legal Sex Female 1:50 PM EDT Gender Identity Female 02/04/2024 12:14 PM EDT Sexual Orientation Not on file Last Filed Vital Signs Vital Sign Reading Time Taken Comments Blood Pressure 113/75 05/11/2024 9:11 AM EDT Pulse 65 05/11/2024 9:11 AM EDT Temperature 36.6 ??C (97.9 ??F) 05/11/2024 9:11 AM ED T Respiratory Rate 18 05/11/2024 9:11 AM EDT Oxygen Saturation 98% 05/11/2024 9:11 AM EDT Inhaled Oxygen Concentration - - Weight 64.4 kg (142 lb) 05/11/2024 9:11 AM EDT Height 160 cm (5' 3 ) 05/11/2024 9:11 AM EDT Body Mass Index 25.15 05/11/2024 9:11 AM EDT Plan of Treatment Not on file Insurance [facility] [place] Care Teams Conductor And Engineer Relationship Specialty Start Date End Date Nae Stockton [address] [place] [phone] PCP - General Family Medicine 02/25/23
--- OUTSIDE RECORDS SUMMARY | 2024-10-25 13:22 | XMS_ITS | Clinical Summary ---
Author Organization [facility] Address [address] [place] [address] Care Team Providers Care Armor Officer Name Role Phone Nae Stockton Primary Care Provider [phone] Allergies No known active allergies Medications cetirizine [...] Active Active Problems No known active problems Encounters Date Type Department Care Team Description 10/11/2024 Telephone [facility] Colorectal Surgery [address] [place] [phone] Fiberglass Product Tester: El Wong MD 10/07/2024 Telephone [facility] Colorectal Surgery [address] [place] [phone] Fiberglass Product Tester: Martita Ferro NP 10/05/2024 Telephone [facility] Colorectal Surgery [address] [place] [phone] Fiberglass Product Tester: Martita Ferro NP from Last 3 Months Family History Medical History Relation Name Comments Heart disease Father Cancer Maternal Grandfather Cancer Maternal Grandmother Relation Name Status Comments Father Maternal Grandfather Maternal Grandmother Social History Tobacco Use Types Packs/Day Years [...] 05/11/2024 9:11 AM EDT Plan of Treatment Health Maintenance Due Date Last Done Comments Pap Smear 1997 Pneumococcal Vaccine: Pediat emilia (0-5 Years) and At-Risk Patients (6-50 Years) (1 of 2 - PCV) 2016 COVID-19 Vaccine (2 - 2023-2 5 season) 2024 07/11/2021 Alcohol/Substance Use Screening 07/21/2024 Depression Screening and Follow-Up 07/21/2024 Social Drivers of Health Mei ual Screening 07/21/2024 Influenza Vaccine (Season Ended) 2025 06/25/2023, 06/06/2020, 06/07/2019, Additional history exists DTaP,Tdap,and Td Vaccines (6 - Td or Tdap) 06/06/2030 06/06/2020, 03/21/2010, 03/15/2003, Additional history exists RSV Vaccine (60+ years old a nd patients) (1 - 1-dose 75+ series) 2072 Hepatitis B Vaccines Completed 04/03/2003, 03/01/1998, 1997 Varicella Vaccines Completed 03/21/2010, 03/15/2003 HIV Screening Completed 10/22/2023, 0409/2023, 10/08/2021 Hepatitis C Screening Completed 10/22/2023 [place] [id number] Care Teams Armor Officer Relationship Specialty Start Date End Date Nae Stockton [address] [place] [address] PCP - General Family Medicine 02/25/23
--- OUTSIDE RECORDS SUMMARY | 2024-10-25 13:22 | XMS_ITS | Encounter Summary ---
Author Organization [facility] Address [address] [facility] [address] [place] [address] Care Team Providers Care Laminating Machine Operator Helper Name Role Phone Nae Stockton MD Primary Care Provider [phone] Encounter Details Date Type Department Care Team ([facility] st Contact Info) Description 12/25/2023 Orders Only [facility] MEDICINE [address] [place], [place] [phone] Nae Stockton MD [address] [place] [address] Social History Tobacco Use Types Packs/Day Years Used Date Smoking Tobacco: Former Cigarettes Passive Smoke Exposure: Never Smokeless Tobacco: Never Depression Answer Date Recorded Patient Health Questionnaire-9 Score 9 10/22/2023 Patient Health Questionnaire-9 Score 9 10/22/2023 Last PHQ-9: Questionnaire Data Not on file 0 10/22/2023 Housing Stability Answer Date Recorded What is [...] Answer Date Recorded Patient Health Questionnaire-2 Score 2 10/22/2023 Comments Unknown Sex and Gender Information Value Date Recorded Sex Assigned at Female 05/20/2022 10:21 AM EDT Legal Sex Female 10:21 AM EDT Gender Identity Female 05/20/2022 10:21 AM EDT Sexual Orientation Straight 05/20/2022 10 :21 AM EDT documented as of this encounter Plan of Treatment Not on file documented as of this encounter Visit Diagnoses Not on filedocumented in this encounter Additional Health Concerns Assessment Noted Time PHQ-9 Depression Total Score: 9 10/22/19 24 9:55 AM EDT documented as of this encounter Care Teams Laminating Machine Operator Helper Relationship Specialty Start Date End Date Nae Stockton MD [address] [place] [phone] PCP - General Family Medicine 12/09/13 documented as of this encounter
--- OUTSIDE RECORDS SUMMARY | 2024-10-25 13:22 | XMS_ITS | Encounter Summary ---
Author Organization [facility] Address [address] [facility] [address] [place] [address] Care Team Providers Care Automatic Fabric Cutter Name Role Phone Nae Stockton MD Primary Care Provider [phone] Encounter Details Date Type Department Care Team ([facility] st Contact Info) Description 05/06/2024 Orders Only [facility] [address] [place], [place] [phone] Nae Stockton MD [address] [place] [address] Abnormal serum iron level (Primary Dx) Social History Tobacco Use Types Packs/Day Years Used Date Smoking Tobacco: Former Cigarettes Passive Smoke Exposure: Never Smokeless Tobacco: Never Depression Answer Date Recorded Patient Health Questionnaire-9 Score 13 02/02/2024 Patient Health Questionnaire-9 Score 13 02/02/2024 Last PHQ-9: Questionnaire Data Not on file 0 02/02/2024 Housing Stability Answer Date Recorded What is [...] Answer Date Recorded Patient Health Questionnaire-2 Score 5 02/02/2024 Comments Unknown Sex and Gender Information Value Date Recorded Sex Assigned at Female 05/20/2022 10:21 AM EDT Legal Sex Female 10:21 AM EDT Gender Identity Female 05/20/2022 10:21 AM EDT Sexual Orientation Straight 05/20/2022 10 :21 AM EDT documented as of this encounter Plan of Treatment Not on file documented as of this encounter Procedures Procedure Name Priority Date/Time Associated Diagnosis Comments IRON AND TOTAL IRON BINDING CAPACITY Routine 05/25/2024 4:43 PM EST Abnormal serum iron level FERRITIN Routine 05/25/2024 4:43 PM EST Abnormal serum iron level documented in this encounter Results * Ferritin (05/25/2024 4:43 PM EST) Ferritin 20 10 - 122 ng/mL [facility] Blood Venous blood specimen / Unknown 05/25/2024 4:43 PM EST 05/25/2024 5:44 PM EST us Nae Stockton MD LAB BLOOD ORDERABLES Final Resul t [facility] [address] [place] [phone] * Iron And Total Iron Binding Capacity (05/25/2024 4:43 PM EST) Iron 123 30 - 160 mcg/dL [facility] Total Iron Binding Capacity 304 228 - 428 mcg/dL [facility] Percent Iron Saturation 40 15 - 50 % [facility] Unsaturated Iron Binding 181 ug/dL [facility] Blood Venous blood specimen / Unknown 05/25/2024 4:43 PM EST 05/25/2024 5:44 PM EST us Nae Stockton MD LAB BLOOD ORDERABLES Final Resul t [facility] [address] [place] [address] [phone] documented in this encounter Visit Diagnoses Diagnosis Abnormal serum iron level- Primary documented in this encounter Additional Health Concerns Assessment Noted Time PHQ-9 Depression Total Score: 13 024 2:26 PM EDT documented as of this encounter Care Teams Automatic Fabric Cutter Relationship Specialty Start Date End Date Nae Stockton MD [address] [place] [phone] PCP - General Family Medicine 12/09/13 documented as of this encounter
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
--- OUTSIDE RECORDS SUMMARY | 2024-10-25 13:22 | XMS_ITS | Encounter Summary ---
Author Organization [employer] Address [address] [place] [address] 7formerly [facility] [place] [address] Care Team Providers Care Manager Business Banking Name Role Phone Nae Stockton MD Primary Care Provider [phone] Reason for Referral * Imaging (Routine) - Authorized Specialty Diagnoses / Procedures Referred By Contac t Referred To Contact Radiology Diagnoses Breast pain, right Procedures BI US Breast Limited Right Nae Stockton MD [address] [place] [address] Phone: tel: fax: [address] Phone: tel: fax: Referral ID Status Reason Start Date Expiration Date V isits Requested Visits Authorized [id number] Authorized 10/20/2024 10/20/2025 1 1 * Imaging (Routine) - Canceled Specialty Diagnoses / Procedures Referred By Contac t Referred To Contact Radiology Diagnoses Breast pain, right Procedures BI US Breast Complete Right Nae Stockton MD [address] [place] [address] Phone: tel: fax: [address] Phone: tel: fax: Referral ID Status Reason Start Date Expiration Date V isits Requested Visits Authorized [id number] Canceled 10/18/2024 10/18/2025 1 1 Encounter Details Date Type Department Care Team (Late st Contact Info) Description 10/18/2024 Orders Only [facility] [address] [place] [address] Nae Stockton MD [address] [place] [address] Breast pain, right (Primary Dx) Social History Tobacco Use Types [...] as of this encounter Plan of Treatment Scheduled Orders Name Type Priority Associated Diagnoses Orde r Schedule BI US Breast Complete Right Imaging Routine Breast pain, right Expected: 10/18/2024, Expires: 10/18/2025 BI US Breast Limited Right Imaging Routine Breast pain, right Expected: 10/20/2024, Expires: 10/20/2025 documented as of this encounter Visit Diagnoses Diagnosis Breast pain, right- Primary documented in this encounter Additional Health Concerns Assessment Noted Time PHQ-9 Depression Total Score: 5 10/15/19 25 11:07 AM EDT documented as of this encounter Care Teams Manager Business Banking Relationship Specialty Start Date End Date Nae Stockton MD [address] [place] [id number] PCP - General Family Medicine 12/09/13 documented as of this encounter
--- OUTSIDE RECORDS SUMMARY | 2024-10-25 13:22 | XMS_ITS | Encounter Summary ---
Author Organization [employer] Address [address] [place] [address] [facility] [place] [address] Care Team Providers Care Painter Interior Finish Name Role Phone Nae Stockton MD Primary Care Provider [phone] Encounter Details Date Type Department Care Team ([facility] st Contact Info) Description 04/02/2023 Orders Only [facility] [address] [place], [place] [id number] Nae Stockton MD [address] [place] [address] Nonintractable episodic headache, unspecified headache type (Primary Dx); Iron deficiency anemia due to chronic blood loss; Vitamin D deficiency; Fatigue, unspecified type; Dysuria; Routine screening for STI (sexually transmitted infection) Social History Tobacco Use Types Packs/Day Years Used Date Smoking Tobacco: Never Passive Smoke Exposure: Never Smokeless Tobacco: Never Depression Answer Date Recorded Patient Health Questionnaire-9 Score 0 10/17/2022 Depression Answer Date Recorded Patient Health Questionnaire-2 [...] Type Priority Associated Diagnoses Orde r Schedule Chlamydia/N. Gonorrhoeae RNA, TMA, Urogenitial Microbiology Routine Routine screening for STI (sexually transmitted infection) Expected: 04/02/2023 (Approximate), Expires: 04/02/2024 Hepatitis B Core Antibody, Total Lab Routine Routine screening for STI (sexually transmitted infection) Expected: 04/02/2023 (Approximate), Expires: 04/02/2024 Hepatitis B Surface Antibody, Qualitative Lab Routine Routine screening for STI (sexually transmitted infection) Expected: 04/02/2023 (Approximate), Expires: 04/02/2024 CBC auto differential Lab Routine Iron deficiency anemia due to chronic blood loss Expected: 04/02/2023 (Approximate), Expires: 04/02/2024 Ferritin Lab Routine Iron deficiency anemia due to chronic blood loss Expected: 04/02/2023 (Approximate), Expires: 04/02/2024 Iron And Total Iron Binding Capacity Lab Routine Iron deficiency anemia due to chronic blood loss Expected: 04/02/2023, Expires: 04/02/2024 Vitamin B12/Folate, Serum Panel Lab Routine Iron deficiency anemia due to chronic blood loss Expected: 04/02/2023 (Approximate), Expires: 04/02/2024 TSH W/Reflex to FT4 Lab Routine Iron deficiency anemia due to chronic blood loss Fatigue, unspecified type Expected: 04/02/2023 (Approximate), Expires: 04/02/2024 Hepatitis B Surface Antigen with Reflex Confirmation Lab Routine Routine screening for STI (sexually transmitted infection) Expected: 04/02/2023 (Approximate), Expires: 04/02/2024 Hepatitis C Antibody with Reflex to HCV, RNA, Quantitative, Real-Time PCR Lab Routine Routine screening for STI (sexually transmitted infection) Expected: 04/02/2023 (Approximate), Expires: 04/02/2024 HIV-1/2 Antigen and Antibodies, Fourth Generation, with Reflexes Lab Routine Routine screening for STI (sexually transmitted infection) Expected: 04/02/2023 (Approximate), Expires: 04/02/2024 Syphilis Screen Lab Routine Routine screening for STI (sexually transmitted infection) Expected: 04/02/2023 (Approximate), Expires: 04/02/2024 Comprehensive Metabolic Panel Lab Routine Fatigue, unspecified type Expected: 04/02/2023 (Approximate), Expires: 04/02/2024 Vitamin D 1,25 dihydroxy Lab Routine Vitamin D deficiency Expected: 04/02/2023 (Approximate), Expires: 04/02/2024 Urinalysis, Complete, with Reflex to Culture Lab Routine Dysuria Expected: 04/02/2023 (Approximate), Expires: 04/02/2024 documented as of this encounter Visit Diagnoses Diagnosis Nonintractable episodic headache, unspecified headache type- Primary Iron deficiency anemia due to chronic blood loss Iron deficiency anemia secondary to blood loss (chronic) Vitamin D deficiency Fatigue, unspecified type Dysuria Routine screening for STI (sexually transmitted infection) Screening examination for venereal disease documented in this encounter Additional Health Concerns Assessment Noted Time PHQ-9 Depression Total Score: 0 10/18/19 23 10:54 AM EDT documented as of this encounter Care Teams Painter Interior Finish Relationship Specialty Start Date End Date Nae Stockton MD [address] [place] [id number] PCP - General Family Medicine 12/09/13 documented as of this encounter
== END 2024-10-25 11:09 | disposition home or self-care (01) ==
LOC: HO.XRAY 11:08
PROVIDERS: PCP Family Medicine; Visit Provider Family Medicine
DX: M25.551 Pain in right hip (principal); M79.604 Pain in right leg; M25.561 Pain in right knee
CPT/HCPCS: 73502; 73562; 73590

== ENCOUNTER → 2024-10-25 11:14 | Outpatient (BNV) | payer MEDICAID, SELFPAY | PROVIDERS: PCP Family Medicine; Visit Provider Radiology Diagnostic Radiology | DX: M25.551 Pain in right hip (principal); M25.561 Pain in right knee; M79.661 Pain in right lower leg | CPT/HCPCS: 73502; 73562; 73590 ==